=== PATIENT | female | born 1965 ===

== ENCOUNTER 2017-08-10 10:19 | Inpatient (IN) | payer MEDICAID, OTHER ==
[2017-08-10 10:19] VITALS: BMI 41.3
--- NOTE | 2017-08-10 10:37 | C.PDOC ---
History Of Present Illness 52 year old female with no significant PMHx presents to the ED with complaints of headache beginning last night. Patient reports scattered bruising, petechaie , and hematuria this morning. Patient took Aspirin for pain, with no relief. Patient denies known trauma, fever, chills, nausea, vomiting, photophobia, dysuria, or other complaints at this time. Time Seen by Provider: 08/10/17 10:29 Chief Complaint (Nursing): Headache History Per: Patient History/Exam Limitations: no limitations Onset/Duration Of Symptoms: Hrs Current Symptoms Are (Timing): Still Present Preceeding Symptoms: None Associated Symptoms: denies: Photophobia, Blurred Vision, Nausea, Vomiting, Extremity Weakness Recent travel outside of the [place]: No Additional History Per: Family Past Medical History Reviewed: Historical Data, Nursing Documentation, Vital Signs Vital Signs: Last Vital Signs Temp 98.0 F 08/11/17 15:00 Pulse 86 08/11/17 16:43 Resp 20 08/11/17 15:00 BP 117/72 08/11/17 15:00 Pulse Ox 96 08/11/17 15:00 - Medical History PMH: HTN Family History: States: Unknown Family Hx - Social History Hx Alcohol Use: No Hx Substance Use: No - Immunization History Hx Tetanus Toxoid Vaccination: No Hx Influenza Vaccination: No Hx Pneumococcal Vaccination: No Review Of Systems Constitutional: Negative for: Fever, Chills Cardiovascular: Negative for: Chest Pain, Palpitations Respiratory: Negative for: Cough, Shortness of Breath Gastrointestinal: Negative for: Nausea, Vomiting, Abdominal Pain Genitourinary: Positive for: Hematuria. Negative for: Dysuria Skin: Positive for: Bruising, Other (petechaie ) Neurological: Positive for: Headache. Negative for: Weakness, Numbness, Dizziness Physical Exam - Physical Exam Appears: Non-toxic, No Acute Distress Skin: Warm, Dry, Ecchymosis (bilateral lower and upper extremities), Other ( petechiae to upper right lower extremity ) Head: Atraumatic, Normacephalic, No Tenderness Eye(s): bilateral: Normal Inspection, PERRL, EOMI Oral Mucosa: Moist Neck: Supple Chest: Symmetrical, No Deformity Cardiovascular: Rhythm Regular, No Murmur Respiratory: No Rales, No Rhonchi, No Wheezing, Other (clear to auscultation bilaterally ) Gastrointestinal/Abdominal: Soft, No Tenderness, No Distention, No Guarding, No Rebound Extremity: Normal ROM, No Tenderness, Capillary Refill (<2 seconds ), No Swelling Neurological/Psych: Oriented x3, Normal Speech, Normal Cognition, Normal Cranial Nerves, No Cerebellar Signs, Normal Motor, Normal Sensation Gait: Steady ED Course And Treatment - Laboratory Results Result Diagrams: 08/11/17 05:54 08/11/17 05:54 O2 Sat by Pulse Oximetry: 98 (RA) Pulse Ox Interpretation: Normal - CT Scan/US Head CT W/O contrast Other Rad Studies (CT/US): Read By Radiologist, Radiology Report Reviewed CT/US Interpretation: FINDINGS: HEMORRHAGE: No intracranial hemorrhage. BRAIN : No mass effect or edema. No atrophy or chronic microvascular ischemic changes. VENTRICLES: Unremarkable. No hydrocephalus. CALVARIUM: Unremarkable. PARANASAL SINUSES: Unremarkable as visualized. No significant inflammatory changes. MASTOID AIR CELLS: Unremarkable as visualized. No inflammatory changes. OTHER FINDINGS: None. IMPRESSION: Normal CT of the Head. No intracranial mass, hemorrhage or evidence of acute infarct. Abdomen Pelvis CT Other Rad Studies (CT/US): Read By Radiologist, Radiology Report Reviewed CT/US Interpretation: FINDINGS: LOWER THORAX: Calcified granuloma lingular segment left upper lobe with adjacent linear pleural-based scar. No infiltrate / effusion. LIVER: Mild hepatomegaly. The liver measures 21 cm craniocaudal. No mass. Smooth contour. No intrahepatic biliary dilatation. GALLBLADDER AND BILE DUCTS: Cholelithiasis. No mural thickening. Incidental tubular structure in the jose m hepatis with peripheral calcification, possibly calcified choledocholithiasis. This is immediately adjacent to the common bile duct/ common hepatic duct. This is not a concern for neoplasm. PANCREAS: Unremarkable. No gross lesion or ductal dilatation. SPLEEN: Unremarkable. ADRENALS: Unremarkable. No mass. KIDNEYS AND URETERS: Unremarkable. No hydronephrosis. No solid mass. VASCULATURE: Unremarkable. No aortic aneurysm. BOWEL: Unremarkable. No obstruction. No gross mural thickening. APPENDIX: Unremarkable. Normal appendix. PERITONEUM: Unremarkable. No free fluid. No free air. LYMPH NODES: Unremarkable. No enlarged lymph nodes. BLADDER: Unremarkable. REPRODUCTIVE: Normal uterus. BONES: No acute fracture. OTHER FINDINGS: None. IMPRESSION: No evidence of urinary calculus or urinary tract obstruction. Cholelithiasis. Incidental peripherally calcified tubular structure in the jose m hepatis, possibly calcified choledochal cyst. No additional abnormality. Progress Note: Head CT w/o contrast, Abdomen Pelvis CT, blood work, and labs were ordered. Patient was given Tylenol. Medical Decision Making Medical Decision Making: supsect new onset thrombocytopenia, itp, ttp hus - r/o intracranil bleed. Spoke to Dr. Boswell, Hem-Onc professional advisor, and recommends STAT 250 mg of Solu-medrol IV and 40 mg Q12. discussed with dr gasca accepts for admission. peripheral smear rquests sent to lab Disposition - Disposition Disposition: HOSPITALIZED Disposition Time: 11:00 Condition: FAIR - Clinical Impression Clinical Impression: Thrombocytopenia, Hematuria, Headache - Scribe Statement The provider has reviewed the documentation as recorded by the Scribe Lin Conte All medical record entries made by the Scribe were at my direction and personally dictated by me. I have reviewed the chart and agree that the record accurately reflects my personal performance of the history, physical exam, medical decision making, and the department course for this patient. I have also personally directed, reviewed, and agree with the discharge instructions and disposition. Decision To Admit - Pt Status Changed To: Hospital Disposition Of: Inpatient - Admit Certification Admit to Inpatient:: After my assessment, the patient will require hospitalization for at least two midnights. This is because of the severity of symptoms shown, intensity of services needed, and/or the medical risk in this patient being treated as an outpatient. - InPatient: Physician Admission Certification: I certify that this patient requires 2 or more midnights of care for the following reason:: needs plts - . Bed Request Type: Telemetry Admitting Physician: Zarina Gasca Patient Diagnosis: Thrombocytopenia, Hematuria, Headache
[2017-08-10 10:58] LABS: BASO # 0.1 K/uL (0.0-0.2); EOS # 0.1 K/uL (0.0-0.7); EOS % 1.3 % (0.0-4.0); HEMOGLOBIN 14.2 g/dL (11.0-16.0); LYMPH # 1.2 K/uL (1.0-4.3); LYMPH % 17.6 % (20.0-40.0); MEAN CELL VOLUME 92.1 fL (81.0-99.0); MEAN CORPUSCULAR HGB CONC 33.6 g/dL (33.0-37.0); MEAN PLATELET VOLUME 9.8 fL (7.2-11.7); MONO # 0.4 K/uL (0.0-0.8); MONO % 6.4 % (0.0-10.0); NEUT # 5.2 K/uL (1.8-7.0); NEUT % 73.7 % (50.0-75.0); RBC 4.59 Mil/uL (3.80-5.20); RED CELL DISTRIBUTION WIDTH 13.2 % (11.5-14.5); WHITE BLOOD COUNT 7.1 K/uL (4.8-10.8)
[2017-08-10 11:02] LABS: HCG,QUALITATIVE URINE NEGATIVE (NEGATIVE)
[2017-08-10 11:06] LABS: INR 0.9; PLATELET COUNT 11 K/uL (130-400); PROTHROMBIN TIME 10.6 SECONDS (9.7-12.2)
[2017-08-10 11:13] LABS: URINE BACTERIA RARE (<OCC); URINE BILIRUBIN NEGATIVE (NEGATIVE); URINE BLOOD 3+ (NEGATIVE); URINE CLARITY Clear (Clear); URINE COLOR Red (YELLOW); URINE GLUCOSE (UA) NORMAL (Normal); URINE LEUKOCYTE ESTERASE NEG Leu/uL (Negative); URINE NITRATE NEGATIVE (NEGATIVE); URINE PROTEIN 2+ mg/dL (NEGATIVE); URINE UROBILINOGEN NORMAL mg/dL (0.2-1.0)
[2017-08-10 11:15] LABS: ALB/GLOB RATIO 1.1 (1.0-2.1); ALT/SGPT 112 U/L (9-52); AST/SGOT 37 U/L (14-36); BLOOD UREA NITROGEN 13 mg/dL (7-17); CALCIUM 8.8 mg/dl (8.6-10.4); GFR AFRICAN-AMERICAN > 60; GFR NON-AFRICAN AMERICAN > 60
[2017-08-10] MEDS ORDERED: MethylPREDNISolone 40 mg Vial IVP STA (11:31)
--- NOTE | 2017-08-10 11:59 | CT ---
PROCEDURE: CT HEAD WITHOUT CONTRAST. HISTORY: khan COMPARISON: None available. TECHNIQUE: Axial computed tomography images were obtained through the head/brain without intravenous contrast. Radiation dose: Total exam DLP = 859.13 mGy-cm. This CT exam was performed using one or more of the following dose reduction techniques: Automated exposure control, adjustment of the mA and/or kV according to patient size, and/or use of iterative reconstruction technique. FINDINGS: HEMORRHAGE: No intracranial hemorrhage. BRAIN: No mass effect or edema. No atrophy or chronic microvascular ischemic changes. VENTRICLES: Unremarkable. No hydrocephalus. CALVARIUM: Unremarkable. PARANASAL SINUSES: Unremarkable as visualized. No significant inflammatory changes. MASTOID AIR CELLS: Unremarkable as visualized. No inflammatory changes. OTHER FINDINGS: None. IMPRESSION: Normal CT of the Head. No intracranial mass, hemorrhage or evidence of acute infarct.
--- NOTE | 2017-08-10 12:16 | CT ---
PROCEDURE: CT Abdomen and Pelvis without intravenous contrast HISTORY: hematuria COMPARISON: None. TECHNIQUE: Without contrast.. Contrast Dose: 0 Radiation dose: Total exam DLP = 1086.66 mGy-cm. This CT exam was performed using one or more of the following dose reduction techniques: Automated exposure control, adjustment of the mA and/or kV according to patient size, and/or use of iterative reconstruction technique. FINDINGS: LOWER THORAX: Calcified granuloma lingular segment left upper lobe with adjacent linear pleural-based scar. No infiltrate/ effusion. LIVER: Mild hepatomegaly. The liver measures 21 cm craniocaudal. No mass. Smooth contour. No intrahepatic biliary dilatation. GALLBLADDER AND BILE DUCTS: Cholelithiasis. No mural thickening. Incidental tubular structure in the jose m hepatis with peripheral calcification, possibly calcified choledocholithiasis. This is immediately adjacent to the common bile duct/common hepatic duct. This is not a concern for neoplasm. PANCREAS: Unremarkable. No gross lesion or ductal dilatation. SPLEEN: Unremarkable. ADRENALS: Unremarkable. No mass. KIDNEYS AND URETERS: Unremarkable. No hydronephrosis. No solid mass. VASCULATURE: Unremarkable. No aortic aneurysm. BOWEL: Unremarkable. No obstruction. No gross mural thickening. APPENDIX: Unremarkable. Normal appendix. PERITONEUM: Unremarkable. No free fluid. No free air. LYMPH NODES: Unremarkable. No enlarged lymph nodes. BLADDER: Unremarkable. REPRODUCTIVE: Normal uterus. BONES: No acute fracture. OTHER FINDINGS: None. IMPRESSION: No evidence of urinary calculus or urinary tract obstruction. Cholelithiasis. Incidental peripherally calcified tubular structure in the jose m hepatis, possibly calcified choledochal cyst. No additional abnormality.
[2017-08-10 12:48] LABS: EOSINOPHIL 2 % (0-4); LYMPHOCYTE 21 % (20-40); MONOCYTE 5 % (0-10); NEUTROPHIL 72 % (50-75); TOTAL CELLS COUNTED 100
[2017-08-10 12:49] LABS: PLATELET ESTIMATE MARKEDLY DECREASED (NORMAL)
--- NOTE | 2017-08-10 15:28 | CP.PCM.HP ---
<Zarina Gasca V - Last Filed: 08/10/17 21:30> Meds Allergies/Adverse Reactions: Allergies Allergy/AdvReac Type Severity Reaction Status Date / Time No Known Allergies Allergy Verified 08/10/17 10:27 Results - Vital Signs Recent Vital Signs: Last Vital Signs Temp 98.8 F 08/10/17 16:48 Pulse 84 08/10/17 16:48 Resp 18 08/10/17 16:48 BP 124/79 08/10/17 16:48 Pulse Ox 97 08/10/17 16:48 - Labs Result Diagrams: 08/10/17 10:50 08/10/17 10:50 Labs: Laboratory Results - last 24 hr 08/10/17 08/10/17 08/10/17 10:50 10:50 10:50 WBC 7.1 RBC 4.59 Hgb 14.2 Hct 42.2 MCV 92.1 MCH 31.0 MCHC 33.6 RDW 13.2 Plt Count 11 L* D MPV 9.8 Neut % (Auto) 73.7 Lymph % (Auto) 17.6 L [place] % (Auto) 6.4 Eos % (Auto) 1.3 Baso % (Auto) 1.0 Neut # 5.2 Lymph # 1.2 [place] # 0.4 Eos # 0.1 Baso # 0.1 Neutrophils % (Manual) 72 Lymphocytes % (Manual) 21 Monocytes % (Manual) 5 Eosinophils % (Manual) 2 Differential Comment Platelet Estimate Markedly decreased L RBC Morphology Normal PT 10.6 INR 0.9 APTT 27 Sodium Potassium Chloride Carbon Dioxide Anion Gap BUN Creatinine Est GFR ( Amer) Est GFR (Non-Af Amer) Random Glucose Calcium Total Bilirubin AST ALT Alkaline Phosphatase Lactate Dehydrogenase Total Protein Albumin Globulin Albumin/Globulin Ratio Urine Color Red Urine Clarity Clear Urine pH 6.0 Ur Specific Gregory 1.003 Urine Protein 2+ H Urine Glucose (UA) Normal Urine Ketones Negative Urine Blood 3+ H Urine Nitrate Negative Urine Bilirubin Negative Urine Urobilinogen Normal Ur Leukocyte Esterase Neg Urine WBC (Auto) 2 Urine RBC (Auto) 228 H Urine Bacteria Rare Urine HCG, Qual Negative Urine Opiates Screen Urine Methadone Screen Ur Barbiturates Screen Ur Phencyclidine Scrn Ur Amphetamines Screen U Benzodiazepines Scrn U Oth Cocaine Metabols U Cannabinoids Screen Alcohol, Quantitative Blood Type Antibody Screen 08/10/17 08/10/1718 10:50 10:59 14:41 WBC RBC Hgb Hct MCV MCH MCHC RDW Plt Count MPV Neut % (Auto) Lymph % (Auto) [place] % (Auto) Eos % (Auto) Baso % (Auto) Neut # Lymph # [place] # Eos # Baso # Neutrophils % (Manual) Lymphocytes % (Manual) Monocytes % (Manual) Eosinophils % (Manual) Differential Comment Platelet Estimate RBC Morphology PT INR APTT Sodium 136 Potassium 4.4 Chloride 102 Carbon Dioxide 26 Anion Gap 13 BUN 13 Creatinine 0.7 Est GFR ( Amer) > 60 Est GFR (Non-Af Amer) > 60 Random Glucose 117 H Calcium 8.8 Total Bilirubin 0.7 AST 37 H D ALT 112 H D Alkaline Phosphatase 123 Lactate Dehydrogenase 455 Total Protein 7.5 Albumin 4.0 Globulin 3.6 Albumin/Globulin Ratio 1.1 Urine Color Urine Clarity Urine pH Ur Specific Gregory Urine Protein Urine Glucose (UA) Urine Ketones Urine Blood Urine Nitrate Urine Bilirubin Urine Urobilinogen Ur Leukocyte Esterase Urine WBC (Auto) Urine RBC (Auto) Urine Bacteria Urine HCG, Qual Urine Opiates Screen Urine Methadone Screen Ur Barbiturates Screen Ur Phencyclidine Scrn Ur Amphetamines Screen U Benzodiazepines Scrn U Oth Cocaine Metabols U Cannabinoids Screen Alcohol, Quantitative < 10 Blood Type B POSITIVE Antibody Screen Negative 08/10/17 15:35 WBC RBC Hgb Hct MCV MCH MCHC RDW Plt Count MPV Neut % (Auto) Lymph % (Auto) [place] % (Auto) Eos % (Auto) Baso % (Auto) Neut # Lymph # [place] # Eos # Baso # Neutrophils % (Manual) Lymphocytes % (Manual) Monocytes % (Manual) Eosinophils % (Manual) Differential Comment Platelet Estimate RBC Morphology PT INR APTT Sodium Potassium Chloride Carbon Dioxide Anion Gap BUN Creatinine Est GFR ( Amer) Est GFR (Non-Af Amer) Random Glucose Calcium Total Bilirubin AST ALT Alkaline Phosphatase Lactate Dehydrogenase Total Protein Albumin Globulin Albumin/Globulin Ratio Urine Color Urine Clarity Urine pH Ur Specific Gregory Urine Protein Urine Glucose (UA) Urine Ketones Urine Blood Urine Nitrate Urine Bilirubin Urine Urobilinogen Ur Leukocyte Esterase Urine WBC (Auto) Urine RBC (Auto) Urine Bacteria Urine HCG, Qual Urine Opiates Screen Positive H Urine Methadone Screen Negative Ur Barbiturates Screen Negative Ur Phencyclidine Scrn Negative Ur Amphetamines Screen Negative U Benzodiazepines Scrn Negative U Oth Cocaine Metabols Negative U Cannabinoids Screen Negative Alcohol, Quantitative Blood Type Antibody Screen Assessment & Plan (1) Severe thrombocytopenia Status: Acute (2) Prophylactic measure Status: Acute Attending/Attestation - Attestation I have personally seen and examined this patient.: Yes I have fully participated in the care of the patient.: Yes I have reviewed all pertinent clinical information: Yes Notes (Text): Patient seen, examined and case discussed with day-time resident. Patient comes in to the hospital following acute bruising over her bilateral bruising over night, as well as mucosal bleeding and associated headaches, which are occipital. Patient reports she takes Aspirin and sometimes NSAID but does not go away. Patient reports she was recently in [facility] and left on 01 of August. Day prior, she had abdominal pain and associated non-bloody diarrhea which resolved following eating grilled/broiled chicken. While in [facility], she stay for two months. Patient reports she has seen delayed in recover which she cuts her finger for at least two months. Patient denies vision changes, denies hearing changes, denies chest pain, denies shortness of breathe, denies myalgia, denies abdominal pain, denies constipation, denies nausea, denies dysuria, denies hematuria. +ecchymoes. Patient has not had bleeding problems prior to these two months. She has had a in the past and no bleeding complications. Patient had a recent procedure completed in [facility] for skin rash but doesn't know medication. I advised them to bring in the paperwork so we can see if there is any medication side effect. Discussed case with heme-oncology, does not believe this is TTP. There is no schistocytes, no hemolysis, and hemoglobin stable. Recommends for Solumedrol 250mg IV X1 and Solumedrol 40mg IV Q12H. Patient is going to have platepheresis has not received yet as she has been transferred to the floor. HIV and hepatitis panel were ordered. CT head was competed by ED. Assessment/Plan 1) Severe thrombocytopenia * Monitor on telemetry * Heme-onc (Dr. Afshin Boswell) on consult-->help appreciated * Discussed with ED to send a peripheral smear. I spoke with lab and confirmed there are no schistocytes. * Given Solumedrol 250mg IV X1 * Recommended Solumedrol 40mg IV Q12 * Ordered plateletpheresis * HIV 1 and 2 pending * Hepatitis panel pending * Abdominal US pending * Blood cultures ordered * Urine culture ordered * UDS is negative (received Morphine in the ED' * [id number] ACT w reflex ordered---Low suspicion for TTP * do not give NSAIDS nor aspirin * CT head (08/10/17): normal CT head, no intracranial mass, hemorrhage, or evidence of acute infarct. * CT Abdomen/Pelvis (08/10/17): no evidence of urinary calculus or urinary tract obstruction. cholelithiasis, incidental peripherally calcifed tubular structure in the jose m hepatis, possible calcifed choledochal cyst. No additional abnormality. * Medicine team * Follow-up paperwork from [facility]-->patient received some type of injection for cellulitis but cannot remember name to see if it has thrombocytopenia 2) Headache * CT head (08/10/17): normal CT head, no intracranial mass, hemorrhage, or evidence of acute infarct. 3) Prophylactic care * Contraindication chemical anticoagulation secondary to thrombocytopenia * Protonix 40mg IV q daily <Christopher Cerda - Last Filed: 08/10/17 23:40> History of Present Illness - History of Present Illness History of Present Illness: PGY2 Resident - Medicine H&P CC: headache since last night; scattered bruising, petechia, and hematuria since this morning. HPI: This 52 year old female with no significant PMHx presents to the ED c/o headache since last night and scattered bruising, petechia, and hematuria since this morning. She took ASA last night with no relief of her headache, located in the occipital region. She also takes OTC Glucosamine Chondr. daily and Motrin PRN for "join aches." This is her first overt episode of petechia and bruising, however she admits that over the last 2 months, it has taken her longer to stop bleeding from minor cuts. She was recently in [facility] and experienced 2d of vomiting and diarrhea between 07/30 and 07/31/17. She feels this is from ingesting a dish or rice, beans, and chicken (reports water is filtered where they stay). She saw a doctor who injected her with unknown medication, and she felt well the next day, catching a return flight on 1/12/ 18. Her son will bring in the medical records for review. She currently denies any fevers, chills, trauma, n/v, photophobia, dysuria, or any additional acute complaints. PMHx: none PSHx: c section 1997 Meds: Glucosamine Chondr 500 Complex 1 Capsule Orally bid Allergies: NKDA FamHx: father: from [place]; mom: heart disease; grandfather (maternal): pancreatic cancer SocHx: 1-2 beers per month PMD: Dr. Amaro Review of Systems: -Gen: +headache (occipital); denies fever, chills, lethargy, weakness. -HEENT: denies dizziness, change in vision, change in hearing, sore throat, dysphagia, nasal congestion, mucous. -Cardio: denies chest pain, palpitations, lower extremity edema, orthopnea. -Resp: denies cough, dyspnea, hemoptysis, wheezing, pain on inspiration. -GI: denies abdominal pain, nausea/vomiting, diarrhea/constipation, hematochezia , hematemesis. -: +hematuria; denies dysuria, urinary freq, incontinence, change in urinary stream. -MSK: denies back pain, muscle weakness, radiating pain. -Skin: +scattered bruising, petechia; denies itching, rash. -Neuro: denies confusion, numbness, tingling, focal weakness, radicular pain, syncope. -Psych: denies anxiety, depression, H/I, S/I, hallucinations. Present on Admission - Present on Admission Any Indicators Present on Admission: No Past Patient History - Past Social History Smoking Status: Never Smoked - CARDIAC Hx Hypertension: Yes - PSYCHIATRIC Hx Substance Use: No - SURGICAL HISTORY Hx Section: Yes - ANESTHESIA Hx Anesthesia: Yes Hx Anesthesia Reactions: No Physical Exam - Constitutional Appears: Non-toxic, No Acute Distress - Head Exam Head Exam: ATRAUMATIC, NORMAL INSPECTION - Eye Exam Eye Exam: EOMI, Normal appearance, PERRL Pupil Exam: NORMAL ACCOMODATION - ENT Exam ENT Exam: Mucous Membranes Moist. absent: Normal Oropharynx Additional comments: scattered hematomas (approx 5) averaging 5-10mm in diameter throughout oropharynx and inner lips. - Neck Exam Neck exam: Positive for: Full Rom. Negative for: Lymphadenopathy - Respiratory Exam Respiratory Exam: Clear to Auscultation Bilateral, NORMAL BREATHING PATTERN. absent: Rhonchi, Wheezes - Cardiovascular Exam Cardiovascular Exam: REGULAR RHYTHM, +S1, +S2 - GI/Abdominal Exam GI & Abdominal Exam: Normal Bowel Sounds, Soft. absent: Organomegaly, Tenderness - Extremities Exam Extremities exam: Positive for: normal inspection. Negative for: pedal edema, tenderness - Back Exam Back exam: NORMAL INSPECTION. absent: CVA tenderness (L), CVA tenderness (R) - Neurological Exam Neurological exam: Alert, CN II-XII Intact, Oriented x3 - Psychiatric Exam Psychiatric exam: Normal Affect, Normal Mood - Skin Skin Exam: Dry, Intact, Petechiae (scattered petachiae of upper and lower extremities; larger areas of bruising up to 2cm in diameter on b/l thighs / shins), Warm Results - Vital Signs Recent Vital Signs: Last Vital Signs Temp 98.8 F 08/10/17 10:20 Pulse 72 08/10/17 11:51 Resp 16 08/10/17 11:51 BP 112/63 08/10/17 11:51 Pulse Ox 98 08/10/17 13:57 - Labs Result Diagrams: 08/10/17 10:50 08/10/17 10:50 Labs: Laboratory Results - last 24 hr 08/10/17 08/10/17 08/10/17 10:50 10:50 10:50 WBC 7.1 RBC 4.59 Hgb 14.2 Hct 42.2 MCV 92.1 MCH 31.0 MCHC 33.6 RDW 13.2 Plt Count 11 L* D MPV 9.8 Neut % (Auto) 73.7 Lymph % (Auto) 17.6 L [place] % (Auto) 6.4 Eos % (Auto) 1.3 Baso % (Auto) 1.0 Neut # 5.2 Lymph # 1.2 [place] # 0.4 Eos # 0.1 Baso # 0.1 Neutrophils % (Manual) 72 Lymphocytes % (Manual) 21 Monocytes % (Manual) 5 Eosinophils % (Manual) 2 Differential Comment Platelet Estimate Markedly decreased L RBC Morphology Normal PT 10.6 INR 0.9 APTT 27 Sodium Potassium Chloride Carbon Dioxide Anion Gap BUN Creatinine Est GFR ( Amer) Est GFR (Non-Af Amer) Random Glucose Calcium Total Bilirubin AST ALT Alkaline Phosphatase Lactate Dehydrogenase Total Protein Albumin Globulin Albumin/Globulin Ratio Urine Color Red Urine Clarity Clear Urine pH 6.0 Ur Specific [place] 1.003 Urine Protein 2+ H Urine Glucose (UA) Normal Urine Ketones Negative Urine Blood 3+ H Urine Nitrate Negative Urine Bilirubin Negative Urine Urobilinogen Normal Ur Leukocyte Esterase Neg Urine WBC (Auto) 2 Urine RBC (Auto) 228 H Urine Bacteria Rare Urine HCG, Qual Negative Alcohol, Quantitative Blood Type Antibody Screen 08/10/17 08/10/17 08/10/17 10:50 10:59 14:41 WBC RBC Hgb Hct MCV MCH MCHC RDW Plt Count MPV Neut % (Auto) Lymph % (Auto) [place] % (Auto) Eos % (Auto) Baso % (Auto) Neut # Lymph # [place] # Eos # Baso # Neutrophils % (Manual) Lymphocytes % (Manual) Monocytes % (Manual) Eosinophils % (Manual) Differential Comment Platelet Estimate RBC Morphology PT INR APTT Sodium 136 Potassium 4.4 Chloride 102 Carbon Dioxide 26 Anion Gap 13 BUN 13 Creatinine 0.7 Est GFR ( Amer) > 60 Est GFR (Non-Af Amer) > 60 Random Glucose 117 H Calcium 8.8 Total Bilirubin 0.7 AST 37 H D ALT 112 H D Alkaline Phosphatase 123 Lactate Dehydrogenase 455 Total Protein 7.5 Albumin 4.0 Globulin 3.6 Albumin/Globulin Ratio 1.1 Urine Color Urine Clarity Urine pH Ur Specific Gregory Urine Protein Urine Glucose (UA) Urine Ketones Urine Blood Urine Nitrate Urine Bilirubin Urine Urobilinogen Ur Leukocyte Esterase Urine WBC (Auto) Urine RBC (Auto) Urine Bacteria Urine HCG, Qual Alcohol, Quantitative < 10 Blood Type B POSITIVE Antibody Screen Negative Assessment & Plan - Assessment and Plan (Free Text) Assessment: Severe thrombocytopenia -CT head: negative, see full report. -CT Abdomen/Pelvis: cholelithiasis, incidental peripherally calcifed tubular structure in the jose m hepatis, possible calcifed choledochal cyst. no evidence of urinary calculus or urinary tract obstruction. see full report. -Heme-onc, Dr. Afshin Boswell, f/u recs -ED course: morphin 2mg IVP, Solumedrol 250mg IVP, Tylenol 925 PO once, Plateletpheresis - Solumedrol 40mg IV Q12 -f/u peripheral smear, HIV1/2, Hep panel, BC, UC, [id number] -f/u medial paperwork (son will bring in, from doctor in [place]- gave her an injection) f/u abd US Hematuria -likely 2/2 severe thrombocytopenia -f/u abdominal ultrasound -UA 2+ protein; 3+ blood f/u UC f/u abd US Headache -CT head: negative, see full report. Prophylaxis Chemical anticoagulation C/I 2/2 thrombocytopenia SCDs C/I 2/2 thrombocytopenia Protonix 40mg IV q daily Case discussed with Dr. Elo Cerda, PGY2 - Date & Time Date: 08/10/17 Time: 15:28
[2017-08-10 16:31] LABS: BARBITURATES, UR NEGATIVE (NEGATIVE); BENZODIAZEPINES, UR NEGATIVE (NEGATIVE); PHENCYCLIDINE, UR NEGATIVE (NEGATIVE)
[2017-08-10 16:33] LABS: OPIATES, UR POSITIVE (NEGATIVE)
--- NOTE | 2017-08-10 17:46 | CP.PCM.CON ---
History of Present Illness - History of Present Illness History of Present Illness: 52 year old female with no past medical history presenting for headache and found to be thrombocytopenic. The patient recently came from [facility] and was given an unknown injection. Since returning, she has been experiencing increasing headache for which she has been taking NSAIDs. She does admit to increased bruising over her extermities. In the ER she was found to have a platelet count of 11,000. She denies taking medication and does not drink alcohol. Past medical history: None Past surgical history: None Family history: Denies hematologic and oncologic problems Social history: Denies tobacco, alcohol, and illicit drug use. Allergies: NKA Review of systems: All remaining review of systems including HEENT, cardiovascular, respiratory, gastrointestinal, genitourinary, musculoskeletal, dermatologic, and psychiatric are negative unless mentioned in the HPI. Past Patient History - Past Social History Smoking Status: Never Smoked - CARDIAC Hx Hypertension: Yes - PSYCHIATRIC Hx Substance Use: No - SURGICAL HISTORY Hx Section: Yes - ANESTHESIA Hx Anesthesia: Yes Hx Anesthesia Reactions: No Meds Allergies/Adverse Reactions: Allergies Allergy/AdvReac Type Severity Reaction Status Date / Time No Known Allergies Allergy Verified 08/10/17 10:27 Physical Exam - Head Exam Head Exam: ATRAUMATIC - Eye Exam Eye Exam: Normal appearance - ENT Exam ENT Exam: Mucous Membranes Dry - Respiratory Exam Respiratory Exam: NORMAL BREATHING PATTERN - Cardiovascular Exam Cardiovascular Exam: +S1, +S2 - GI/Abdominal Exam GI & Abdominal Exam: Normal Bowel Sounds - Extremities Exam Extremities exam: Positive for: normal inspection - Neurological Exam Neurological exam: Oriented x3 - Psychiatric Exam Psychiatric exam: Normal Affect, Normal Mood - Skin Skin Exam: Warm Results - Vital Signs Recent Vital Signs: Last Vital Signs Temp 98.8 F 08/10/17 16:48 Pulse 84 08/10/17 16:48 Resp 18 08/10/17 16:48 BP 124/79 08/10/17 16:48 Pulse Ox 97 08/10/17 16:48 - Labs Result Diagrams: 08/11/17 22:57 08/11/17 05:54 Labs: Laboratory Results - last 24 hr 08/10/17 08/10/17 08/10/17 10:50 10:50 10:50 WBC 7.1 RBC 4.59 Hgb 14.2 Hct 42.2 MCV 92.1 MCH 31.0 MCHC 33.6 RDW 13.2 Plt Count 11 L* D MPV 9.8 Neut % (Auto) 73.7 Lymph % (Auto) 17.6 L [place] % (Auto) 6.4 Eos % (Auto) 1.3 Baso % (Auto) 1.0 Neut # 5.2 Lymph # 1.2 [place] # 0.4 Eos # 0.1 Baso # 0.1 Neutrophils % (Manual) 72 Lymphocytes % (Manual) 21 Monocytes % (Manual) 5 Eosinophils % (Manual) 2 Differential Comment Platelet Estimate Markedly decreased L RBC Morphology Normal PT 10.6 INR 0.9 APTT 27 Sodium Potassium Chloride Carbon Dioxide Anion Gap BUN Creatinine Est GFR ( Amer) Est GFR (Non-Af Amer) Random Glucose Calcium Total Bilirubin AST ALT Alkaline Phosphatase Lactate Dehydrogenase Total Protein Albumin Globulin Albumin/Globulin Ratio Urine Color Red Urine Clarity Clear Urine pH 6.0 Ur Specific [place] 1.003 Urine Protein 2+ H Urine Glucose (UA) Normal Urine Ketones Negative Urine Blood 3+ H Urine Nitrate Negative Urine Bilirubin Negative Urine Urobilinogen Normal Ur Leukocyte Esterase Neg Urine WBC (Auto) 2 Urine RBC (Auto) 228 H Urine Bacteria Rare Urine HCG, Qual Negative Urine Opiates Screen Urine Methadone Screen Ur Barbiturates Screen Ur Phencyclidine Scrn Ur Amphetamines Screen U Benzodiazepines Scrn U Oth Cocaine Metabols U Cannabinoids Screen Alcohol, Quantitative Blood Type Antibody Screen 08/10/17 08/10/17 08/10/17 10:50 10:59 14:41 WBC RBC Hgb Hct MCV MCH MCHC RDW Plt Count MPV Neut % (Auto) Lymph % (Auto) [place] % (Auto) Eos % (Auto) Baso % (Auto) Neut # Lymph # [place] # Eos # Baso # Neutrophils % (Manual) Lymphocytes % (Manual) Monocytes % (Manual) Eosinophils % (Manual) Differential Comment Platelet Estimate RBC Morphology PT INR APTT Sodium 136 Potassium 4.4 Chloride 102 Carbon Dioxide 26 Anion Gap 13 BUN 13 Creatinine 0.7 Est GFR ( Amer) > 60 Est GFR (Non-Af Amer) > 60 Random Glucose 117 H Calcium 8.8 Total Bilirubin 0.7 AST 37 H D ALT 112 H D Alkaline Phosphatase 123 Lactate Dehydrogenase 455 Total Protein 7.5 Albumin 4.0 Globulin 3.6 Albumin/Globulin Ratio 1.1 Urine Color Urine Clarity Urine pH Ur Specific [place] Urine Protein Urine Glucose (UA) Urine Ketones Urine Blood Urine Nitrate Urine Bilirubin Urine Urobilinogen Ur Leukocyte Esterase Urine WBC (Auto) Urine RBC (Auto) Urine Bacteria Urine HCG, Qual Urine Opiates Screen Urine Methadone Screen Ur Barbiturates Screen Ur Phencyclidine Scrn Ur Amphetamines Screen U Benzodiazepines Scrn U Oth Cocaine Metabols U Cannabinoids Screen Alcohol, Quantitative < 10 Blood Type B POSITIVE Antibody Screen Negative 08/10/17 15:35 WBC RBC Hgb Hct MCV MCH MCHC RDW Plt Count MPV Neut % (Auto) Lymph % (Auto) [place] % (Auto) Eos % (Auto) Baso % (Auto) Neut # Lymph # [place] # Eos # Baso # Neutrophils % (Manual) Lymphocytes % (Manual) Monocytes % (Manual) Eosinophils % (Manual) Differential Comment Platelet Estimate RBC Morphology PT INR APTT Sodium Potassium Chloride Carbon Dioxide Anion Gap BUN Creatinine Est GFR ( Amer) Est GFR (Non-Af Amer) Random Glucose Calcium Total Bilirubin AST ALT Alkaline Phosphatase Lactate Dehydrogenase Total Protein Albumin Globulin Albumin/Globulin Ratio Urine Color Urine Clarity Urine pH Ur Specific [place] Urine Protein Urine Glucose (UA) Urine Ketones Urine Blood Urine Nitrate Urine Bilirubin Urine Urobilinogen Ur Leukocyte Esterase Urine WBC (Auto) Urine RBC (Auto) Urine Bacteria Urine HCG, Qual Urine Opiates Screen Positive H Urine Methadone Screen Negative Ur Barbiturates Screen Negative Ur Phencyclidine Scrn Negative Ur Amphetamines Screen Negative U Benzodiazepines Scrn Negative U Oth Cocaine Metabols Negative U Cannabinoids Screen Negative Alcohol, Quantitative Blood Type Antibody Screen Assessment & Plan (1) Thrombocytopenia Assessment and Plan: 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 Status: Acute
[2017-08-10] MEDS: MethylPREDNISolone 40 mg Vial IVP SCH (19:00)
[2017-08-11 06:00] LABS: BASO % 0.1 % (0.0-2.0); HEMOGLOBIN 12.8 g/dL (11.0-16.0); LYMPH # 0.8 K/uL (1.0-4.3); LYMPH % 9.8 % (20.0-40.0); MEAN CELL VOLUME 91.7 fL (81.0-99.0); MEAN CORPUSCULAR HEMOGLOBIN 30.9 pg (27.0-31.0); MEAN CORPUSCULAR HGB CONC 33.7 g/dL (33.0-37.0); MEAN PLATELET VOLUME 8.6 fL (7.2-11.7); MONO # 0.2 K/uL (0.0-0.8); MONO % 2.3 % (0.0-10.0); NEUT # 7.5 K/uL (1.8-7.0); NEUT % 87.8 % (50.0-75.0); RBC 4.15 Mil/uL (3.80-5.20); RED CELL DISTRIBUTION WIDTH 12.8 % (11.5-14.5); WHITE BLOOD COUNT 8.5 K/uL (4.8-10.8)
[2017-08-11 06:07] LABS: PROTHROMBIN TIME 10.9 SECONDS (9.7-12.2)
[2017-08-11] MEDS: MethylPREDNISolone 40 mg Vial IVP SCH ×2 (06:07→17:48)
[2017-08-11 06:16] LABS: PLATELET COUNT 3 K/uL (130-400)
[2017-08-11 06:31] LABS: ALB/GLOB RATIO 1.2 (1.0-2.1); ALBUMIN 3.7 g/dL (3.5-5.0); ALT/SGPT 85 U/L (9-52); AST/SGOT 24 U/L (14-36); BLOOD UREA NITROGEN 12 mg/dL (7-17); CALCIUM 8.4 mg/dl (8.6-10.4); GFR AFRICAN-AMERICAN > 60; GFR NON-AFRICAN AMERICAN > 60; MAGNESIUM 1.9 mg/dL (1.6-2.3)
[2017-08-11 07:59] LABS: HEPATITIS B SURFACE AG NEGATIVE (NEGATIVE)
[2017-08-11 08:05] LABS: HEPATITIS A IGM NEGATIVE (NEGATIVE); HEPATITIS B CORE AB Negative (NEGATIVE)
[2017-08-11 08:17] LABS: HEPATITIS C ANTIBODY Negative (NEGATIVE)
[2017-08-11 09:34] LABS: BANDS 1 % (0-2)
[2017-08-11 09:37] LABS: LYMPHOCYTE 6 % (20-40); MONOCYTE 2 % (0-10); NEUTROPHIL 91 % (50-75); TOTAL CELLS COUNTED 100
[2017-08-11 09:38] LABS: GIANT PLATELETS PRESENT; PLATELET ESTIMATE MARKEDLY DECREASED (NORMAL)
[2017-08-11 09:40] LABS: ANISOCYTOSIS SLIGHT
--- NOTE | 2017-08-11 09:51 | US ---
HISTORY: low platelet count COMPARISON: None. TECHNIQUE: Sonographic evaluation of the abdomen. FINDINGS: LIVER: Measures 16.5 Cm. Diffusely increased echogenicity of the liver parenchyma. No mass. Smooth contour. No biliary dilatation. GALLBLADDER: Cholelithiasis. No mural thickening. No pericholecystic fluid. Negative sonographic Henderson sign. Adjacent to the gallbladder, there is a peripherally echogenic/calcified structure with dense posterior acoustic shadowing. This corresponds to a peripherally calcified tubular low-density structure on CT examination of the prior day, possibly a calcified choledocholithiasis. COMMON BILE DUCT: Measures 8 mm. No stones. No dilatation. PANCREAS: Unremarkable as visualized. No mass. No ductal dilatation. RIGHT KIDNEY: Measures 10.3cm. Normal echogenicity. No calculus, mass, or hydronephrosis. LEFT KIDNEY: Measures 10.3cm. Normal echogenicity. No calculus, mass, or hydronephrosis. SPLEEN: Normal in size and contour. No mass. AORTA: No aneurysmal dilatation. IVC: Unremarkable. OTHER FINDINGS: None. IMPRESSION: Cholelithiasis without sonographic evidence of cholecystitis. Peripherally calcified structure adjacent to the gallbladder likely corresponds to what may represent a peripherally calcified choledocholithiasis on CT examination of the previous day. Minimal dilatation of the common bile duct, uncertain significance. No intrahepatic biliary dilatation or pancreatic ductal dilatation.
--- NOTE | 2017-08-11 11:30 | CP.PCM.PN ---
<Emigdio Ramires - Last Filed: 08/11/17 18:04> Subjective - Date & Time of Evaluation Date of Evaluation: 08/11/17 Time of Evaluation: 07:27 - Subjective Subjective: Dr. Carlos Canales's Service, Emigdio Ramires Can Washer PGY-1 Patient seen and examined at bedside. Per nursing no acute events occurred overnight. The patient reports a small headache today. The patient is tolerating diet and and had one bowel movement that was normal. The patient denies any chest pain, abdominal pain, fevers, chills, changes in vision, syncopal episodes, nausea, vomiting, lightheadedness, constipation, or any other complaints. Objective - Vital Signs/Intake and Output Vital Signs (last 24 hours): Temp Pulse Resp BP Pulse Ox 98.2 F 60 20 115/70 95 08/11/17 07:00 08/11/17 08:26 08/11/17 07:00 08/11/17 07:00 08/11/17 07:00 Intake and Output: 08/11/17 08/11/17 06:59 18:59 Intake Total 200 Balance 200 - Medications Medications: Current Medications Methylprednisolone (Solu-Medrol) 40 mg IVP Q12H ELOISA Last Admin: 08/11/17 06:07 Dose: 40 mg - Labs Labs: 08/11/17 05:54 08/11/17 05:54 PT 10.9 SECONDS (9.7-12.2) 08/11/17 05:54 INR 1.0 08/11/17 05:54 APTT 25 SECONDS (21-34) 08/11/17 05:54 - Head Exam Head Exam: ATRAUMATIC, NORMAL INSPECTION, NORMOCEPHALIC - Eye Exam Eye Exam: EOMI, Normal appearance, PERRL Pupil Exam: NORMAL ACCOMODATION, PERRL. absent: Irregular, Unequal - ENT Exam ENT Exam: Mucous Membranes Moist, Normal Oropharynx - Neck Exam Neck Exam: Full ROM, Normal Inspection. absent: Lymphadenopathy, Thyromegaly - Respiratory Exam Respiratory Exam: Clear to Ausculation Bilateral, NORMAL BREATHING PATTERN. absent: Chest Wall Tenderness, Prolonged Expiratory Phase, Respiratory Distress - Cardiovascular Exam Cardiovascular Exam: REGULAR RHYTHM, RRR, +S1, +S2. absent: Gallop, Rubs - GI/Abdominal Exam GI & Abdominal Exam: Soft, Normal Bowel Sounds. absent: Rigid - Extremities Exam Extremities Exam: Full ROM, Normal Inspection. absent: Pedal Edema - Back Exam Back Exam: NORMAL INSPECTION. absent: CVA tenderness (L), CVA tenderness (R), paraspinal tenderness - Neurological Exam Neurological Exam: Alert, Awake, CN II-XII Intact, Normal Gait, Oriented x3 - Psychiatric Exam Psychiatric exam: Normal Affect, Normal Mood - Skin Skin Exam: Dry, Intact, Normal Color, Warm Assessment and Plan - Assessment and Plan (Free Text) Plan: Severe thrombocytopenia -CT head: negative, see full report. -CT Abdomen/Pelvis: cholelithiasis, incidental peripherally calcifed tubular structure in the jose m hepatis, possible calcifed choledochal cyst. no evidence of urinary calculus or urinary tract obstruction. see full report. -Heme-onc, Dr. Afshin Boswell, rec's appreciated. -ED course: morphin 2mg IVP, Solumedrol 250mg IVP, Tylenol 925 PO once, Plateletpheresis - Solumedrol 40mg IV Q12 -f/u peripheral smear .HIV1/2, Hep panel and [id number] negative . -f/u medial paperwork (son will bring in, from doctor in [facility]- gave her an injection) -abd US: Cholelithiasis, dilated calcified choledocholithiasis -Patient transfused one bag of platlets. -CBC for 10pm tonight. If Platelet count remains low transfuse another bag of platelets. Hematuria -likely 2/2 severe thrombocytopenia -f/u abdominal ultrasound: Cholelithiasis, dilated calcified choledocholithiasis -UA 2+ protein; 3+ blood -Urine culture negative. Headache -CT head: negative, see full report. Prophylaxis Chemical anticoagulation C/I 2/2 thrombocytopenia SCDs C/I 2/2 thrombocytopenia Protonix 40mg IV q daily <Carlos Canales - Last Filed: 08/11/17 19:45> Objective - Vital Signs/Intake and Output Vital Signs (last 24 hours): Temp Pulse Resp BP Pulse Ox 98.0 F 86 20 117/72 98 08/11/17 15:00 08/11/17 16:43 08/11/17 15:00 08/11/17 15:00 08/11/17 17:56 Intake and Output: 08/11/17 08/12/17 18:59 06:59 Intake Total 196 Balance 196 - Medications Medications: Current Medications Methylprednisolone (Solu-Medrol) 40 mg IVP Q12H ELOISA Last Admin: 08/11/17 17:48 Dose: 40 mg - Labs Labs: 08/11/17 05:54 08/11/17 05:54 PT 10.9 SECONDS (9.7-12.2) 08/11/17 05:54 INR 1.0 08/11/17 05:54 APTT 25 SECONDS (21-34) 08/11/17 05:54 Attending/Attestation - Attestation I have personally seen and examined this patient.: Yes I have fully participated in the care of the patient.: Yes I have reviewed all pertinent clinical information, including history, physical exam and plan: Yes Notes (Text): 08/11/17 19:38 Patient was seen and examined at 5:30 PM 08/11/17 551 A with Holden Robe present Exam, assessment and plan were gone over with the resident. Please note on Exam: HEENT: buccal mucosa, pharynx and hard palate have areas of bruising Skin: there are multiple areas of bruising present on the bilateral arms and legs Extremities: pulses are strong and equal, capillary refill is 2 seconds, NO edema. However bilateral lateral malleoli there are soft, round, fluid filled areas. Patient received 1 unit of Platelets on 08/10/17 and then again 08/11/17. F/U repeat CBC at 10 PM 08/11/17 and if there has been NO improvement then medicine will order another unit of Platelets. Please also note that ADAMTS 13 is still pending. Spoke with Holden Nagel at length about Thrombocytopenia. He provided information that the patient was given and injection of Valerpan (betamethasone) in [facility] on 07/23/17 and the bruising did not start till 08/10/17. She is NOT taking any other medications, vitamins, minerals, herbs at home. She was last on Glucosamine back in May 2017. Patient is currently on Solumedrol 40 mg IV Q12H. Carlos Canales D.O.
[2017-08-11 23:01] LABS: BASO # 0.1 K/uL (0.0-0.2); BASO % 1.2 % (0.0-2.0); EOS # 0.1 K/uL (0.0-0.7); EOS % 0.9 % (0.0-4.0); HEMOGLOBIN 12.2 g/dL (11.0-16.0); LYMPH # 0.4 K/uL (1.0-4.3); LYMPH % 4.4 % (20.0-40.0); MEAN CELL VOLUME 92.2 fL (81.0-99.0); MEAN CORPUSCULAR HEMOGLOBIN 30.8 pg (27.0-31.0); MEAN CORPUSCULAR HGB CONC 33.4 g/dL (33.0-37.0); MONO # 0.2 K/uL (0.0-0.8); MONO % 2.6 % (0.0-10.0); NEUT # 8.8 K/uL (1.8-7.0); NEUT % 90.9 % (50.0-75.0); RBC 3.96 Mil/uL (3.80-5.20); RED CELL DISTRIBUTION WIDTH 13.1 % (11.5-14.5); WHITE BLOOD COUNT 9.6 K/uL (4.8-10.8)
[2017-08-11 23:04] LABS: PLATELET COUNT 4 K/uL (130-400)
[2017-08-11 23:26] LABS: LYMPHOCYTE 11 % (20-40); MONOCYTE 2 % (0-10); NEUTROPHIL 87 % (50-75); PLATELET ESTIMATE MARKEDLY DECREASED (NORMAL); TOTAL CELLS COUNTED 100
[2017-08-12] MEDS: MethylPREDNISolone 40 mg Vial IVP SCH ×2 (05:21→17:54)
[2017-08-12 08:10] LABS: BASO % 0.1 % (0.0-2.0); HEMOGLOBIN 12.8 g/dL (11.0-16.0); LYMPH # 0.9 K/uL (1.0-4.3); LYMPH % 8.2 % (20.0-40.0); MEAN CELL VOLUME 92.1 fL (81.0-99.0); MEAN CORPUSCULAR HEMOGLOBIN 31.1 pg (27.0-31.0); MEAN CORPUSCULAR HGB CONC 33.8 g/dL (33.0-37.0); MEAN PLATELET VOLUME 8.3 fL (7.2-11.7); MONO # 0.4 K/uL (0.0-0.8); MONO % 3.6 % (0.0-10.0); NEUT # 9.2 K/uL (1.8-7.0); NEUT % 88.1 % (50.0-75.0); RBC 4.13 Mil/uL (3.80-5.20); WHITE BLOOD COUNT 10.5 K/uL (4.8-10.8)
[2017-08-12 08:21] LABS: PLATELET COUNT 13 K/uL (130-400)
[2017-08-12 08:27] LABS: ALB/GLOB RATIO 1.1 (1.0-2.1); ALBUMIN 3.8 g/dL (3.5-5.0); ALT/SGPT 77 U/L (9-52); AST/SGOT 26 U/L (14-36); BLOOD UREA NITROGEN 15 mg/dL (7-17); CALCIUM 8.6 mg/dl (8.6-10.4); GFR AFRICAN-AMERICAN > 60; GFR NON-AFRICAN AMERICAN > 60
[2017-08-12 10:29] LABS: BANDS 1 % (0-2); LYMPHOCYTE 12 % (20-40); MONOCYTE 5 % (0-10); NEUTROPHIL 82 % (50-75); TOTAL CELLS COUNTED 100
[2017-08-12 10:30] LABS: PLATELET ESTIMATE MARKEDLY DECREASED (NORMAL)
--- NOTE | 2017-08-12 13:06 | CP.PCM.PN ---
<AishaDebora - Last Filed: 08/12/17 15:10> Subjective - Date & Time of Evaluation Date of Evaluation: 08/12/17 Time of Evaluation: 07:00 - Subjective Subjective: PGY 3- Heme/Onc Progress Note- Dr. Boswell's Service: Patient seen and examined at bedside this AM. Patient feels well and is ambulating. She is worried about persistent low platelets. Denies headache or bleeding this AM. Denies chest pain, SOB, fevers, chills, nausea, vomiting. Objective - Vital Signs/Intake and Output Vital Signs (last 24 hours): Temp Pulse Resp BP Pulse Ox 97.7 F 57 L 20 114/74 98 08/12/17 08:23 08/12/17 08:23 08/12/17 08:23 08/12/17 08:23 08/12/17 08:23 Intake and Output: 08/12/17 08/12/17 06:59 18:59 Intake Total 800 200 Balance 800 200 - Medications Medications: Current Medications Methylprednisolone (Solu-Medrol) 40 mg IVP Q12H ELOISA Last Admin: 08/12/17 05:21 Dose: 40 mg - Labs Labs: 08/12/17 07:54 08/12/17 07:54 PT 10.9 SECONDS (9.7-12.2) 08/11/17 05:54 INR 1.0 08/11/17 05:54 APTT 25 SECONDS (21-34) 08/11/17 05:54 - Constitutional Appears: No Acute Distress - Head Exam Head Exam: NORMAL INSPECTION, NORMOCEPHALIC - Eye Exam Eye Exam: EOMI, Normal appearance - ENT Exam ENT Exam: Mucous Membranes Moist - Respiratory Exam Respiratory Exam: Clear to Ausculation Bilateral, NORMAL BREATHING PATTERN - Cardiovascular Exam Cardiovascular Exam: REGULAR RHYTHM, +S1, +S2 - GI/Abdominal Exam GI & Abdominal Exam: Soft, Normal Bowel Sounds. 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 Boswell. Recommendations above as per attending. Rl Leonard, PGY 3 <Suleman Boswell - Last Filed: 08/12/17 21:14> Objective - Vital Signs/Intake and Output Vital Signs (last 24 hours): Temp Pulse Resp BP Pulse Ox 98.3 F 77 20 100/61 96 08/12/17 16:32 08/12/17 16:32 08/12/17 16:32 08/12/17 16:32 08/12/17 16:32 Intake and Output: 08/12/17 08/13/17 18:59 06:59 Intake Total 680 Balance 680 - Medications Medications: Current Medications Methylprednisolone (Solu-Medrol) 40 mg IVP Q12H ELOISA Last Admin: 08/12/17 17:54 Dose: 40 mg - Labs Labs: 08/12/17 07:54 08/12/17 07:54 PT 10.9 SECONDS (9.7-12.2) 08/11/17 05:54 INR 1.0 08/11/17 05:54 APTT 25 SECONDS (21-34) 08/11/17 05:54 Assessment and Plan (1) Thrombocytopenia Status: Acute - Assessment and Plan (Free Text) Assessment: Pt seen and examined, agree with residents note. Suspected ITP on steroids with improving platelet count. Will add IVIG if platelet count does not improve.
--- NOTE | 2017-08-12 19:23 | CP.PCM.PN ---
Addendum entered and electronically signed by Emigdio Ramires DO 08/12/17 19: 35: Physical exam: Hard palate and buccal cavity had petichia/brusing Arms bilaterally and legs bilaterally had petichia/bruising. Original Note: <Emigdio Ramires - Last Filed: 08/12/17 19:24> Subjective - Date & Time of Evaluation Date of Evaluation: 08/12/17 Time of Evaluation: 08:20 - Subjective Subjective: Dr. Carlos Canales's Service, Emigdio Ramirse-PGY1 Patient seen and examined at bedside. Per nursing no acute events occurred overnight. The patient does report a little headache today. The patient denies any chest pain, abdominal pain, fevers ,chills, syncopal episodes, changes in vision, vomiting, numbness or tingling in her hands or feet, lightheadedness, dizziness or any other complaints . Objective - Vital Signs/Intake and Output Vital Signs (last 24 hours): Temp Pulse Resp BP Pulse Ox 98.3 F 77 20 100/61 96 08/12/17 16:32 08/12/17 16:32 08/12/17 16:32 08/12/17 16:32 08/12/17 16:32 Intake and Output: 08/12/17 08/13/17 18:59 06:59 Intake Total 680 Balance 680 - Medications Medications: Current Medications Methylprednisolone (Solu-Medrol) 40 mg IVP Q12H ELOISA Last Admin: 08/12/17 17:54 Dose: 40 mg - Labs Labs: 08/12/17 07:54 08/12/17 07:54 PT 10.9 SECONDS (9.7-12.2) 08/11/17 05:54 INR 1.0 08/11/17 05:54 APTT 25 SECONDS (21-34) 08/11/17 05:54 - Head Exam Head Exam: ATRAUMATIC, NORMAL INSPECTION, NORMOCEPHALIC - Eye Exam Eye Exam: EOMI, Normal appearance, PERRL. absent: Periorbital tenderness Pupil Exam: NORMAL ACCOMODATION, PERRL. absent: Irregular, Unequal - ENT Exam ENT Exam: Mucous Membranes Moist, Normal Exam, Normal Oropharynx - Neck Exam Neck Exam: absent: Lymphadenopathy, Thyromegaly - Respiratory Exam Respiratory Exam: Clear to Ausculation Bilateral, NORMAL BREATHING PATTERN. absent: Chest Wall Tenderness, Prolonged Expiratory Phase, Respiratory Distress - Cardiovascular Exam Cardiovascular Exam: REGULAR RHYTHM, RRR, +S1, +S2. absent: Gallop, Rubs - GI/Abdominal Exam GI & Abdominal Exam: Soft, Normal Bowel Sounds. absent: Rigid, Hyperactive Bowel Sounds - Extremities Exam Extremities Exam: Full ROM. absent: Joint Swelling, Pedal Edema, Tenderness - Back Exam Back Exam: NORMAL INSPECTION. absent: CVA tenderness (L), CVA tenderness (R), paraspinal tenderness - Neurological Exam Neurological Exam: Alert, Awake, CN II-XII Intact, Normal Gait, Oriented x3 - Psychiatric Exam Psychiatric exam: Normal Affect, Normal Mood. absent: Depressed - Skin Skin Exam: Dry, Intact Assessment and Plan - Assessment and Plan (Free Text) Plan: Severe thrombocytopenia -CT head: negative, see full report. -CT Abdomen/Pelvis: cholelithiasis, incidental peripherally calcifed tubular structure in the jose m hepatis, possible calcifed choledochal cyst. no evidence of urinary calculus or urinary tract obstruction. see full report. -Heme-onc, Dr. Afshin Boswell, rec's appreciated. -ED course: morphin 2mg IVP, Solumedrol 250mg IVP, Tylenol 925 PO once, Plateletpheresis - Solumedrol 40mg IV Q12 -f/u peripheral smear .HIV1/2, Hep panel and [id number] negative . -f/u medial paperwork (son will bring in, from doctor in [facility]- gave her an injection) -abd US: Cholelithiasis, dilated calcified choledocholithiasis -Per Dr. Boswell conversation, possibility of transfusing IgG to the patient tomorrow if platelet count remains low. Will f/u tomorrow for further rec's. Hematuria -likely 2/2 severe thrombocytopenia -f/u abdominal ultrasound: Cholelithiasis, dilated calcified choledocholithiasis -UA 2+ protein; 3+ blood -Urine culture negative. -Patient currently not reporting. Will continue to monitor. Headache -CT head: negative, see full report. Prophylaxis Chemical anticoagulation C/I 2/2 thrombocytopenia SCDs C/I 2/2 thrombocytopenia Protonix 40mg IV q daily <Carlos Canales - Last Filed: 08/12/17 20:14> Objective - Vital Signs/Intake and Output Vital Signs (last 24 hours): Temp Pulse Resp BP Pulse Ox 98.3 F 77 20 100/61 96 08/12/17 16:32 08/12/17 16:32 08/12/17 16:32 08/12/17 16:32 08/12/17 16:32 Intake and Output: 08/12/17 08/13/17 18:59 06:59 Intake Total 680 Balance 680 - Medications Medications: Current Medications Methylprednisolone (Solu-Medrol) 40 mg IVP Q12H ELOISA Last Admin: 08/12/17 17:54 Dose: 40 mg - Labs Labs: 08/12/17 07:54 08/12/17 07:54 PT 10.9 SECONDS (9.7-12.2) 08/11/17 05:54 INR 1.0 08/11/17 05:54 APTT 25 SECONDS (21-34) 08/11/17 05:54 Attending/Attestation - Attestation I have personally seen and examined this patient.: Yes I have fully participated in the care of the patient.: Yes I have reviewed all pertinent clinical information, including history, physical exam and plan: Yes Notes (Text): 08/12/17 20:12 Patient was seen and examined at 5:45 PM 08/12/17 551 A with Holden Nagel present Exam, assessment and plan were gone over with the resident. Please note on Exam: HEENT: buccal mucosa, pharynx and hard palate have areas of bruising/petechia Skin: there are multiple areas of bruising present on the bilateral arms and legs Extremities: pulses are strong and equal, capillary refill is 2 seconds, NO edema. However bilateral lateral malleoli there are soft, round, fluid filled areas. Assessments: 1). Thrombocytopenia NOT likely TTP Consider ITP Patient received 1 unit of Platelets on 08/10/17 and then again 08/11/17. If platelets do not continue to rise then Heme/Onc to consider IV IgG Please also note that ADAMTS 13 is still pending. Spoke with Holden Nagel 08/11/17: at length about Thrombocytopenia. He provided information that the patient was given and injection of Valerpan (betamethasone ) in [place] on 07/23/17 and the bruising did not start till 08/10/17. She is NOT taking any other medications, vitamins, minerals, herbs at home. She was last on Glucosamine back in May 2017. Patient is currently on Solumedrol 40 mg IV Q12H. Carlos Canales D.O.
[2017-08-13] MEDS: MethylPREDNISolone 40 mg Vial IVP SCH ×2 (06:19→17:19)
[2017-08-13 08:10] LABS: BASO % 0.2 % (0.0-2.0); HEMOGLOBIN 13.8 g/dL (11.0-16.0); LYMPH # 1.8 K/uL (1.0-4.3); LYMPH % 18.5 % (20.0-40.0); MEAN CELL VOLUME 92.2 fL (81.0-99.0); MEAN CORPUSCULAR HEMOGLOBIN 31.3 pg (27.0-31.0); MEAN CORPUSCULAR HGB CONC 33.9 g/dL (33.0-37.0); MEAN PLATELET VOLUME 10.4 fL (7.2-11.7); MONO # 0.5 K/uL (0.0-0.8); MONO % 4.8 % (0.0-10.0); NEUT # 7.5 K/uL (1.8-7.0); NEUT % 76.5 % (50.0-75.0); RBC 4.42 Mil/uL (3.80-5.20); WHITE BLOOD COUNT 9.8 K/uL (4.8-10.8)
[2017-08-13 08:53] LABS: ALB/GLOB RATIO 1.1 (1.0-2.1); ALT/SGPT 66 U/L (9-52); AST/SGOT 17 U/L (14-36); BLOOD UREA NITROGEN 12 mg/dL (7-17); CALCIUM 9.1 mg/dl (8.6-10.4); GFR AFRICAN-AMERICAN > 60; GFR NON-AFRICAN AMERICAN > 60
--- NOTE | 2017-08-13 10:30 | CP.PCM.PN ---
<Emigdio Ramires - Last Filed: 08/13/17 10:32> Subjective - Date & Time of Evaluation Date of Evaluation: 08/13/17 Time of Evaluation: 08:22 - Subjective Subjective: Emigdio French Director Clinical Pharmacology-PGY1 Patient seen and examined at bedside. Per nursing no acute events occurred overnight. The patient reports feeling slightly fatigued today. She denies any chest pain, shortness of breath, fevers, chills, nausea, vomiting, changes in vision, abdominal pain, syncopal episodes, headaches, or any other complaints. Objective - Vital Signs/Intake and Output Vital Signs (last 24 hours): Temp Pulse Resp BP Pulse Ox 97.7 F 56 L 20 129/86 97 08/13/17 08:30 08/13/17 08:30 08/13/17 08:30 08/13/17 08:30 08/13/17 08:30 Intake and Output: 08/13/17 08/13/17 06:59 18:59 Intake Total 400 Balance 400 - Medications Medications: Current Medications Methylprednisolone (Solu-Medrol) 40 mg IVP Q12H ELOISA Last Admin: 08/13/17 06:19 Dose: 40 mg - Labs Labs: 08/13/17 07:58 08/13/17 07:58 PT 10.9 SECONDS (9.7-12.2) 08/11/17 05:54 INR 1.0 08/11/17 05:54 APTT 25 SECONDS (21-34) 08/11/17 05:54 - Head Exam Head Exam: ATRAUMATIC, NORMAL INSPECTION, NORMOCEPHALIC - Eye Exam Eye Exam: EOMI, Normal appearance, PERRL. absent: Periorbital tenderness Pupil Exam: NORMAL ACCOMODATION, PERRL. absent: Irregular, Unequal - ENT Exam Additional comments: bruising/petichiae appreciated in the buccal caivity and palate of the mouth - Neck Exam Neck Exam: Full ROM. absent: Lymphadenopathy, Thyromegaly - Respiratory Exam Respiratory Exam: Clear to Ausculation Bilateral, NORMAL BREATHING PATTERN. absent: Chest Wall Tenderness, Prolonged Expiratory Phase, Respiratory Distress - Cardiovascular Exam Cardiovascular Exam: REGULAR RHYTHM, RRR, +S1, +S2. absent: Rubs - GI/Abdominal Exam GI & Abdominal Exam: Soft, Normal Bowel Sounds. absent: Rigid, Hyperactive Bowel Sounds - Extremities Exam Extremities Exam: Full ROM, Normal Inspection. absent: Joint Swelling, Pedal Edema, Tenderness Additional comments: Upper extremity shows bruising/petichiae - Back Exam Back Exam: NORMAL INSPECTION. absent: CVA tenderness (R), paraspinal tenderness - Neurological Exam Neurological Exam: Alert, Awake, CN II-XII Intact, Oriented x3 - Psychiatric Exam Psychiatric exam: Normal Affect, Normal Mood - Skin Skin Exam: Dry, Intact, Normal Color, Warm Assessment and Plan - Assessment and Plan (Free Text) Plan: Severe thrombocytopenia -CT head: negative, see full report. -CT Abdomen/Pelvis: cholelithiasis, incidental peripherally calcifed tubular structure in the jose m hepatis, possible calcifed choledochal cyst. no evidence of urinary calculus or urinary tract obstruction. see full report. -Heme-onc, Dr. Afshin Boswell, rec's appreciated. -ED course: morphin 2mg IVP, Solumedrol 250mg IVP, Tylenol 925 PO once, Plateletpheresis - Solumedrol 40mg IV Q12 -f/u peripheral smear .HIV1/2, Hep panel and [id number] negative . -f/u medial paperwork (son will bring in, from doctor in [facility]- gave her an injection) -abd US: Cholelithiasis, dilated calcified choledocholithiasis -Plt count today 5. Will notify Dr. Boswell to obtain rec's for possible IgG transfusion. Hematuria -likely 2/2 severe thrombocytopenia -f/u abdominal ultrasound: Cholelithiasis, dilated calcified choledocholithiasis -UA 2+ protein; 3+ blood -Urine culture negative. -Patient currently not reporting. Will continue to monitor. Headache -CT head: negative, see full report. Prophylaxis Chemical anticoagulation C/I 2/2 thrombocytopenia SCDs C/I 2/2 thrombocytopenia Protonix 40mg IV q daily <Carlos Canales - Last Filed: 08/13/17 19:28> Objective - Vital Signs/Intake and Output Vital Signs (last 24 hours): Temp Pulse Resp BP Pulse Ox 99.0 F 78 20 106/70 95 08/13/17 17:03 08/13/17 17:03 08/13/17 17:03 08/13/17 17:03 08/13/17 17:03 Intake and Output: 08/13/17 08/14/17 18:59 06:59 Intake Total 530 Balance 530 - Medications Medications: Current Medications Acetaminophen (Tylenol 325mg Tab) 650 mg PO DAILY ELOISA Stop: 08/18/17 12:31 Last Admin: 08/13/17 12:36 Dose: 650 mg Diphenhydramine HCl (Benadryl) 25 mg PO DAILY ELOISA Stop: 08/18/17 12:31 Last Admin: 08/13/17 12:36 Dose: 25 mg Immune Globulin (Octagam 5%) 740 mls @ 60 mls/hr IV DAILY@1300 ELOISA Stop: 08/18/17 01:19 Last Admin: 08/13/17 14:25 Dose: 60 mls/hr Methylprednisolone (Solu-Medrol) 100 mg IVP DAILY ELOISA Stop: 08/18/17 12:31 Last Admin: 08/13/17 12:36 Dose: 100 mg - Labs Labs: 08/13/17 07:58 08/13/17 07:58 PT 10.9 SECONDS (9.7-12.2) 08/11/17 05:54 INR 1.0 08/11/17 05:54 APTT 25 SECONDS (21-34) 08/11/17 05:54 Attending/Attestation - Attestation I have personally seen and examined this patient.: Yes I have fully participated in the care of the patient.: Yes I have reviewed all pertinent clinical information, including history, physical exam and plan: Yes Notes (Text): 08/13/17 19:23 Patient was seen and examined at 12:30 PM 08/13/17 551 A with Holden Nagel present Exam, assessment and plan were gone over with the resident. Please note on Exam: HEENT: buccal mucosa, pharynx and hard palate have areas of bruising Skin: there are multiple areas of bruising present on the bilateral arms and legs Extremities: pulses are strong and equal, capillary refill is 2 seconds, NO edema. However bilateral lateral malleoli there are soft, round, fluid filled areas. Assessments: 1). Thrombocytopenia Received 2 units of Platelets and has been on IV Solemdrol since admission, however no significant improvement in Platelets. NOT TTP due to NO schistocytes on Peripheral Smear, NO fever, NO Renal Failure NOT on any medications that could have caused it: she received betamethasone in [facility] on 07/23/17 for eczema like rash on bilateral anterior lower legs Heme/Onc recommended IV IgG at 400 mg per kg and to premedicate with Solumedrol , Tylenol, and Benadryl for 5 days starting 08/13/17 and these orders have been placed. Explained to patient and son Robe. Carlso Canales D.O.
--- NOTE | 2017-08-13 12:52 | CP.PCM.PN ---
<Debora Leonard - Last Filed: 08/13/17 12:50> Subjective - Date & Time of Evaluation Date of Evaluation: 08/13/17 Time of Evaluation: 10:00 - Subjective Subjective: PGY 3- Heme/Onc Progress Note- Dr. Boswell's Service: Patient seen and examined at bedside this AM. Patient reports issues overnight with roommate. Admits bruising in her mouth has improved. Admits bruising over all extremities is "not getting better". Otherwise she denies chest pain, SOB, fevers, chills, nausea, vomiting, bleeding in the urine or in her stool. Objective - Vital Signs/Intake and Output Vital Signs (last 24 hours): Temp Pulse Resp BP Pulse Ox 97.7 F 56 L 20 129/86 97 08/13/17 08:30 08/13/17 08:30 08/13/17 08:30 08/13/17 08:30 08/13/17 08:30 Intake and Output: 08/13/17 08/13/17 06:59 18:59 Intake Total 400 Balance 400 - Medications Medications: Current Medications Acetaminophen (Tylenol 325mg Tab) 650 mg PO DAILY [facility] Stop: 08/18/17 12:31 Last Admin: 08/13/17 12:36 Dose: 650 mg Diphenhydramine HCl (Benadryl) 25 mg PO DAILY [facility] Stop: 08/18/17 12:31 Last Admin: 08/13/17 12:36 Dose: 25 mg Immune Globulin (Octagam 5%) 740 mls @ 0 mls/hr IV DAILY@1300 [facility] PRN Reason: UD Stop: 08/17/17 13:01 Methylprednisolone (Solu-Medrol) 40 mg IVP Q12H [facility] Last Admin: 08/13/17 06:19 Dose: 40 mg Methylprednisolone (Solu-Medrol) 100 mg IVP DAILY [facility] Stop: 08/18/17 12:31 Last Admin: 08/13/17 12:36 Dose: 100 mg - Labs Labs: 08/13/17 07:58 08/13/17 07:58 PT 10.9 SECONDS (9.7-12.2) 08/11/17 05:54 INR 1.0 08/11/17 05:54 APTT 25 SECONDS (21-34) 08/11/17 05:54 - Constitutional Appears: No Acute Distress - Head Exam Head Exam: NORMAL INSPECTION, NORMOCEPHALIC - Eye Exam Eye Exam: EOMI, Normal appearance - Respiratory Exam Respiratory Exam: Clear to Ausculation Bilateral. absent: Rhonchi, Wheezes - Cardiovascular Exam Cardiovascular Exam: REGULAR RHYTHM, +S1, +S2 - GI/Abdominal Exam GI & Abdominal Exam: Soft. 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 Patient will have to be pre-medicated with Solumedrol, Benadryl and Tylenol prior to treatments Case discussed with Dr. Boswell. Recommendations above as per attending. Rl Leonard, PGY 3 <Suleman Boswell - Last Filed: 08/13/17 22:05> Objective - Vital Signs/Intake and Output Vital Signs (last 24 hours): Temp Pulse Resp BP Pulse Ox 99.0 F 78 20 106/70 95 08/13/17 17:03 08/13/17 17:03 08/13/17 17:03 08/13/17 17:03 08/13/17 17:03 Intake and Output: 08/13/17 08/14/17 18:59 06:59 Intake Total 530 Balance 530 - Medications Medications: Current Medications Acetaminophen (Tylenol 325mg Tab) 650 mg PO DAILY [facility] Stop: 08/18/17 12:31 Last Admin: 08/13/17 12:36 Dose: 650 mg Diphenhydramine HCl (Benadryl) 25 mg PO DAILY [facility] Stop: 08/18/17 12:31 Last Admin: 08/13/17 12:36 Dose: 25 mg Immune Globulin (Octagam 5%) 740 mls @ 60 mls/hr IV DAILY@1300 [facility] Stop: 08/18/17 01:19 Last Admin: 08/13/17 14:25 Dose: 60 mls/hr Methylprednisolone (Solu-Medrol) 100 mg IVP DAILY [facility] Stop: 08/18/17 12:31 Last Admin: 08/13/17 12:36 Dose: 100 mg - Labs Labs: 08/13/17 07:58 08/13/17 07:58 PT 10.9 SECONDS (9.7-12.2) 08/11/17 05:54 INR 1.0 08/11/17 05:54 APTT 25 SECONDS (21-34) 08/11/17 05:54 Assessment and Plan (1) Thrombocytopenia Status: Acute - Assessment and Plan (Free Text) Assessment: Pt seen and examine, agree with residents note. Add IVIG today as plt count downtrending despite steroids.
[2017-08-13] MEDS ORDERED: IMMUNE GLOBULIN 50 MG/ML IV SCH ×2 (13:00→13:54)
[2017-08-13] MEDS ORDERED: Immune Globulin 50 MG/ML (OCTAGAM 5%) 10 GM/200 ML IV SCH (13:00)
[2017-08-13] MEDS: IMMUNE GLOBULIN 50 MG/ML IV SCH (14:25)
[2017-08-14 07:31] LABS: BASO % 0.1 % (0.0-2.0); LYMPH # 1.5 K/uL (1.0-4.3); LYMPH % 17.4 % (20.0-40.0); MEAN CELL VOLUME 91.2 fL (81.0-99.0); MEAN CORPUSCULAR HEMOGLOBIN 31.9 pg (27.0-31.0); MEAN CORPUSCULAR HGB CONC 34.9 g/dL (33.0-37.0); MEAN PLATELET VOLUME 10.3 fL (7.2-11.7); MONO # 0.6 K/uL (0.0-0.8); MONO % 6.8 % (0.0-10.0); NEUT # 6.6 K/uL (1.8-7.0); NEUT % 75.7 % (50.0-75.0); RBC 4.4 Mil/uL (3.80-5.20); WHITE BLOOD COUNT 8.8 K/uL (4.8-10.8)
[2017-08-14 07:45] LABS: ALBUMIN 3.8 g/dL (3.5-5.0); ALT/SGPT 75 U/L (9-52); AST/SGOT 20 U/L (14-36); BLOOD UREA NITROGEN 14 mg/dL (7-17); CALCIUM 9.1 mg/dl (8.6-10.4); GFR AFRICAN-AMERICAN > 60; GFR NON-AFRICAN AMERICAN > 60
[2017-08-14 07:57] LABS: ALB/GLOB RATIO 0.8 (1.0-2.1)
[2017-08-14] MEDS ORDERED: Immune Globulin 50 MG/ML (OCTAGAM 5%) 10 GM/200 ML IV SCH (10:00)
--- NOTE | 2017-08-14 13:01 | CP.PCM.PN ---
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 Per nursing no acute events occurred overnight. The reports a slight headache from yesterday. She denies any chest pain, shortness of breath, fevers, chills, nausea, vomiting, changes in vision, abdominal pain, syncopal episodes, headaches, or any other complaints. Objective - Vital Signs/Intake and Output Vital Signs (last 24 hours): Temp Pulse Resp BP Pulse Ox 98.2 F 62 20 128/81 97 08/14/17 07:20 08/14/17 07:20 08/14/17 07:20 08/14/17 07:20 08/14/17 07:20 Intake and Output: 08/14/17 08/14/17 06:59 18:59 Intake Total 1300 Balance 1300 - Medications Medications: Current Medications Acetaminophen (Tylenol 325mg Tab) 650 mg PO DAILY [facility] Stop: 08/18/17 12:31 Last Admin: 08/14/17 09:49 Dose: 650 mg Diphenhydramine HCl (Benadryl) 25 mg PO DAILY [facility] Stop: 08/18/17 12:31 Last Admin: 08/14/17 09:49 Dose: 25 mg Immune Globulin (Octagam 5%) 740 mls @ 60 mls/hr IV DAILY@1300 [facility] Stop: 08/18/17 01:19 Last Admin: 08/13/17 14:25 Dose: 60 mls/hr Methylprednisolone (Solu-Medrol) 100 mg IVP DAILY [facility] Stop: 08/18/17 12:31 Last Admin: 08/14/17 09:50 Dose: 100 mg - Labs Labs: 08/14/17 07:25 08/14/17 07:25 PT 10.9 SECONDS (9.7-12.2) 08/11/17 05:54 INR 1.0 08/11/17 05:54 APTT 25 SECONDS (21-34) 08/11/17 05:54 - Head Exam Head Exam: ATRAUMATIC, NORMAL INSPECTION, NORMOCEPHALIC - Eye Exam Eye Exam: EOMI, Normal appearance, PERRL. absent: Periorbital tenderness Pupil Exam: NORMAL ACCOMODATION, PERRL. absent: Irregular, Unequal - ENT Exam ENT Exam: Mucous Membranes Moist, Normal Exam, Normal Oropharynx - Neck Exam Neck Exam: Normal Inspection. absent: Lymphadenopathy, Thyromegaly - Respiratory Exam Respiratory Exam: Clear to Ausculation Bilateral, NORMAL BREATHING PATTERN. absent: Respiratory Distress - Cardiovascular Exam Cardiovascular Exam: REGULAR RHYTHM, RRR, +S1, +S2. absent: Gallop, Rubs - GI/Abdominal Exam GI & Abdominal Exam: Soft, Normal Bowel Sounds. absent: Rigid, Hyperactive Bowel Sounds - Extremities Exam Extremities Exam: Full ROM, Normal Inspection. absent: Joint Swelling, Pedal Edema, Tenderness - Back Exam Back Exam: NORMAL INSPECTION. absent: CVA tenderness (L), CVA tenderness (R), paraspinal tenderness - Neurological Exam Neurological Exam: Alert, Awake, CN II-XII Intact, Oriented x3 - Psychiatric Exam Psychiatric exam: Normal Affect, Normal Mood - Skin Skin Exam: Dry, Intact Assessment and Plan - Assessment and Plan (Free Text) Plan: Severe thrombocytopenia -CT head: negative, see full report. -CT Abdomen/Pelvis: cholelithiasis, incidental peripherally calcifed tubular structure in the jose m hepatis, possible calcifed choledochal cyst. no evidence of urinary calculus or urinary tract obstruction. see full report. -Heme-onc, Dr. Afshin Boswell, rec's appreciated. -ED course: morphin 2mg IVP, Solumedrol 250mg IVP, Tylenol 925 PO once, Plateletpheresis -Continue methylprednisolone 100mg IVP Daily -peripheral smear: No blasts, no platelet clumps, WBC within normal limits, RBC within normal limits. -f/u medial paperwork (son will bring in, from doctor in [facility]- gave her an injection) -abd US: Cholelithiasis, dilated calcified choledocholithiasis -Plt count today 14. Will continue IgG infusion (Day 2 of 5 completed) Hematuria -likely 2/2 severe thrombocytopenia -f/u abdominal ultrasound: Cholelithiasis, dilated calcified choledocholithiasis -UA 2+ protein; 3+ blood -Urine culture negative. -Patient currently not reporting. Will continue to monitor. Headache -CT head: negative, see full report. Prophylaxis Chemical anticoagulation C/I 2/2 thrombocytopenia SCDs C/I 2/2 thrombocytopenia <Carlos Canales - Last Filed: 08/14/17 19:50> Objective - Vital Signs/Intake and Output Vital Signs (last 24 hours): Temp Pulse Resp BP Pulse Ox 98 F 84 20 128/81 95 08/14/17 16:45 08/14/17 16:45 08/14/17 16:45 08/14/17 07:20 08/14/17 16:45 - Medications Medications: Current Medications Acetaminophen (Tylenol 325mg Tab) 650 mg PO DAILY [facility] Stop: 08/18/17 12:31 Last Admin: 08/14/17 09:49 Dose: 650 mg Diphenhydramine HCl (Benadryl) 25 mg PO DAILY [facility] Stop: 08/18/17 12:31 Last Admin: 08/14/17 09:49 Dose: 25 mg Immune Globulin (Octagam 5%) 740 mls @ 60 mls/hr IV DAILY@1300 [facility] Stop: 08/18/17 01:19 Last Admin: 08/14/17 13:08 Dose: 60 mls/hr Methylprednisolone (Solu-Medrol) 100 mg IVP DAILY [facility] Stop: 08/18/17 12:31 Last Admin: 08/14/17 09:50 Dose: 100 mg - Labs Labs: 08/14/17 07:25 08/14/17 07:25 PT 10.9 SECONDS (9.7-12.2) 08/11/17 05:54 INR 1.0 08/11/17 05:54 APTT 25 SECONDS (21-34) 08/11/17 05:54 Attending/Attestation - Attestation I have personally seen and examined this patient.: Yes I have fully participated in the care of the patient.: Yes I have reviewed all pertinent clinical information, including history, physical exam and plan: Yes Notes (Text): 08/14/17 19:48 Patient was seen and examined at 1:15 PM 08/14/17 551 A with Holden Nagel present Exam, assessment and plan were gone over with the resident. Please note on Exam: HEENT: buccal mucosa, pharynx and hard palate have areas of bruising Skin: there are multiple areas of bruising present on the bilateral arms and legs Extremities: pulses are strong and equal, capillary refill is 2 seconds, NO edema. However bilateral lateral malleoli there are soft, round, fluid filled areas. Assessments: 1). Thrombocytopenia Received 2 units of Platelets and has been on IV Solemdrol since admission, however there was no significant improvement in Platelets. Heme/Onc recommended IV IgG at 400 mg per kg and to premedicate with Solumedrol , Tylenol, and Benadryl for 5 days starting 08/13/17 with last dose on 08/14/17. NOT TTP due to NO schistocytes on Peripheral Smear, NO fever, NO Renal Failure NOT on any medications that could have caused it: she received betamethasone in [facility] on 07/23/17 for eczema like rash on bilateral anterior lower legs Carlos Canales D.O.
[2017-08-14] MEDS: IMMUNE GLOBULIN 50 MG/ML IV SCH (13:08)
[2017-08-15 07:47] LABS: ALBUMIN 3.6 g/dL (3.5-5.0); ALT/SGPT 70 U/L (9-52); AST/SGOT 21 U/L (14-36); BLOOD UREA NITROGEN 16 mg/dL (7-17); CALCIUM 8.8 mg/dl (8.6-10.4); GFR AFRICAN-AMERICAN > 60; GFR NON-AFRICAN AMERICAN > 60
[2017-08-15 08:09] LABS: ALB/GLOB RATIO 0.7 (1.0-2.1)
[2017-08-15 08:13] LABS: BASO % 0.2 % (0.0-2.0); EOS % 0.2 % (0.0-4.0); HEMOGLOBIN 13.6 g/dL (11.0-16.0); LYMPH # 1.9 K/uL (1.0-4.3); LYMPH % 26.6 % (20.0-40.0); MEAN CELL VOLUME 90.8 fL (81.0-99.0); MEAN CORPUSCULAR HGB CONC 35.2 g/dL (33.0-37.0); MEAN PLATELET VOLUME 9.6 fL (7.2-11.7); MONO # 0.6 K/uL (0.0-0.8); MONO % 8.4 % (0.0-10.0); NEUT # 4.6 K/uL (1.8-7.0); NEUT % 64.6 % (50.0-75.0); NRBC % 0.1 % (0.0-2.0); RBC 4.26 Mil/uL (3.80-5.20); RED CELL DISTRIBUTION WIDTH 12.8 % (11.5-14.5); WHITE BLOOD COUNT 7.1 K/uL (4.8-10.8)
--- NOTE | 2017-08-15 12:47 | CP.PCM.PN ---
<Debora Leonard - Last Filed: 08/15/17 12:38> Subjective - Date & Time of Evaluation Date of Evaluation: 08/15/17 Time of Evaluation: 10:00 - Subjective Subjective: PGY 3 Progress Note- Heme/Onc Service- Dr. Boswell: Patient seen and examined at bedside this morning. Patient reports feeling well and is ambulating. States bruises are getting better over her extremities. No other complaints today. Objective - Vital Signs/Intake and Output Vital Signs (last 24 hours): Temp Pulse Resp BP Pulse Ox 98.4 F 70 20 115/77 96 08/15/17 08:08 08/15/17 08:08 08/15/17 08:08 08/15/17 08:08 08/15/17 08:08 Intake and Output: 08/15/17 08/15/17 06:59 18:59 Intake Total 420 Balance 420 - Medications Medications: Current Medications Acetaminophen (Tylenol 325mg Tab) 650 mg PO DAILY [facility] Stop: 08/18/17 12:31 Last Admin: 08/15/17 10:01 Dose: 650 mg Diphenhydramine HCl (Benadryl) 25 mg PO DAILY [facility] Stop: 08/18/17 12:31 Last Admin: 08/15/17 10:01 Dose: 25 mg Immune Globulin (Octagam 5%) 740 mls @ 60 mls/hr IV DAILY@1300 [facility] Stop: 08/18/17 01:19 Last Admin: 08/14/17 13:08 Dose: 60 mls/hr Methylprednisolone (Solu-Medrol) 100 mg IVP DAILY [facility] Stop: 08/18/17 12:31 Last Admin: 08/15/17 10:01 Dose: 100 mg - Labs Labs: 08/15/17 07:14 08/15/17 07:14 PT 10.9 SECONDS (9.7-12.2) 08/11/17 05:54 INR 1.0 08/11/17 05:54 APTT 25 SECONDS (21-34) 08/11/17 05:54 - Constitutional Appears: No Acute Distress - Head Exam Head Exam: NORMAL INSPECTION, NORMOCEPHALIC - Eye Exam Eye Exam: EOMI - ENT Exam ENT Exam: Mucous Membranes Moist - Respiratory Exam Respiratory Exam: Clear to Ausculation Bilateral, NORMAL BREATHING PATTERN - Cardiovascular Exam Cardiovascular Exam: REGULAR RHYTHM, +S1, +S2 - GI/Abdominal Exam GI & Abdominal Exam: Soft. 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 Day 3 of 5. Patient will have to be pre-medicated with Solumedrol, Benadryl and Tylenol prior to treatments Case discussed with Dr. Boswell. Recommendations above as per attending. Rl Leonard, PGY 3 <Suleman Boswell - Last Filed: 08/15/17 22:30> Objective - Vital Signs/Intake and Output Vital Signs (last 24 hours): Temp Pulse Resp BP Pulse Ox 99.0 F 97 H 20 123/75 97 08/15/17 16:55 08/15/17 16:55 08/15/17 16:55 08/15/17 16:55 08/15/17 16:55 - Medications Medications: Current Medications Acetaminophen (Tylenol 325mg Tab) 650 mg PO DAILY [facility] Stop: 08/18/17 12:31 Last Admin: 08/15/17 10:01 Dose: 650 mg Diphenhydramine HCl (Benadryl) 25 mg PO DAILY [facility] Stop: 08/18/17 12:31 Last Admin: 08/15/17 10:01 Dose: 25 mg Immune Globulin (Octagam 5%) 740 mls @ 60 mls/hr IV DAILY@1300 [facility] Stop: 08/18/17 01:19 Last Admin: 08/15/17 13:34 Dose: 60 mls/hr Methylprednisolone (Solu-Medrol) 100 mg IVP DAILY [facility] Stop: 08/18/17 12:31 Last Admin: 08/15/17 10:01 Dose: 100 mg - Labs Labs: 08/15/17 07:14 08/15/17 07:14 PT 10.9 SECONDS (9.7-12.2) 08/11/17 05:54 INR 1.0 08/11/17 05:54 APTT 25 SECONDS (21-34) 08/11/17 05:54 Assessment and Plan (1) Thrombocytopenia Status: Acute - Assessment and Plan (Free Text) Assessment: Pt seen and examined, agree with residents note. ITP with improving plt count with steroids and IVIG.
[2017-08-15] MEDS: IMMUNE GLOBULIN 50 MG/ML IV SCH (13:34)
--- NOTE | 2017-08-15 15:14 | CP.PCM.PN ---
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 Per nursing no acute events occurred overnight. The patient is reporting feeling a lot better today. The patient states her energy level has improved as well. She denies any chest pain, shortness of breath, fevers, chills, nausea, vomiting, changes in vision, abdominal pain, syncopal episodes, headaches, or any other complaints. Objective - Vital Signs/Intake and Output Vital Signs (last 24 hours): Temp Pulse Resp BP Pulse Ox 98.4 F 70 20 115/77 96 08/15/17 08:08 08/15/17 08:08 08/15/17 08:08 08/15/17 08:08 08/15/17 08:08 Intake and Output: 08/15/17 08/15/17 06:59 18:59 Intake Total 420 Balance 420 - Medications Medications: Current Medications Acetaminophen (Tylenol 325mg Tab) 650 mg PO DAILY [facility] Stop: 08/18/17 12:31 Last Admin: 08/15/17 10:01 Dose: 650 mg Diphenhydramine HCl (Benadryl) 25 mg PO DAILY [facility] Stop: 08/18/17 12:31 Last Admin: 08/15/17 10:01 Dose: 25 mg Immune Globulin (Octagam 5%) 740 mls @ 60 mls/hr IV DAILY@1300 [facility] Stop: 08/18/17 01:19 Last Admin: 08/15/17 13:34 Dose: 60 mls/hr Methylprednisolone (Solu-Medrol) 100 mg IVP DAILY [facility] Stop: 08/18/17 12:31 Last Admin: 08/15/17 10:01 Dose: 100 mg - Labs Labs: 08/15/17 07:14 08/15/17 07:14 PT 10.9 SECONDS (9.7-12.2) 08/11/17 05:54 INR 1.0 08/11/17 05:54 APTT 25 SECONDS (21-34) 08/11/17 05:54 - Head Exam Head Exam: ATRAUMATIC, NORMAL INSPECTION, NORMOCEPHALIC - Eye Exam Eye Exam: EOMI, Normal appearance, PERRL. absent: Nystagmus Pupil Exam: NORMAL ACCOMODATION, PERRL. absent: Irregular, Unequal - ENT Exam ENT Exam: Mucous Membranes Moist, Normal Oropharynx - Neck Exam Neck Exam: absent: Lymphadenopathy, Thyromegaly - Respiratory Exam Respiratory Exam: Clear to Ausculation Bilateral, NORMAL BREATHING PATTERN. absent: Chest Wall Tenderness, Prolonged Expiratory Phase, Respiratory Distress - Cardiovascular Exam Cardiovascular Exam: REGULAR RHYTHM, +S1, +S2 - GI/Abdominal Exam GI & Abdominal Exam: Soft, Normal Bowel Sounds. absent: Rigid, Hyperactive Bowel Sounds - Extremities Exam Extremities Exam: Full ROM. absent: Joint Swelling, Pedal Edema - Back Exam Back Exam: NORMAL INSPECTION. absent: CVA tenderness (L), CVA tenderness (R), paraspinal tenderness - Neurological Exam Neurological Exam: Alert, Awake, CN II-XII Intact, Oriented x3 - Psychiatric Exam Psychiatric exam: Normal Affect, Normal Mood - Skin Skin Exam: Dry, Intact Assessment and Plan - Assessment and Plan (Free Text) Plan: Severe thrombocytopenia -CT head: negative, see full report. -CT Abdomen/Pelvis: cholelithiasis, incidental peripherally calcifed tubular structure in the jose m hepatis, possible calcifed choledochal cyst. no evidence of urinary calculus or urinary tract obstruction. see full report. -Heme-onc, Dr. Afshin Boswell, rec's appreciated. -ED course: morphin 2mg IVP, Solumedrol 250mg IVP, Tylenol 925 PO once, Plateletpheresis -Continue methylprednisolone 100mg IVP Daily -peripheral smear: No blasts, no platelet clumps, WBC within normal limits, RBC within normal limits. -abd US: Cholelithiasis, dilated calcified choledocholithiasis -Plt count today 71. Will continue IgG infusion (Day 3 of 5 completed) Hematuria -likely 2/2 severe thrombocytopenia -f/u abdominal ultrasound: Cholelithiasis, dilated calcified choledocholithiasis -UA 2+ protein; 3+ blood -Urine culture negative. -Patient currently not reporting any urinary symptoms.. Will continue to monitor. Headache -CT head: negative, see full report. Prophylaxis Chemical anticoagulation C/I 2/2 thrombocytopenia SCDs C/I 2/2 thrombocytopenia <Carlos Canales - Last Filed: 08/15/17 19:56> Objective - Vital Signs/Intake and Output Vital Signs (last 24 hours): Temp Pulse Resp BP Pulse Ox 99.0 F 97 H 20 123/75 97 08/15/17 16:55 08/15/17 16:55 08/15/17 16:55 08/15/17 16:55 08/15/17 16:55 - Medications Medications: Current Medications Acetaminophen (Tylenol 325mg Tab) 650 mg PO DAILY [facility] Stop: 08/18/17 12:31 Last Admin: 08/15/17 10:01 Dose: 650 mg Diphenhydramine HCl (Benadryl) 25 mg PO DAILY [facility] Stop: 08/18/17 12:31 Last Admin: 08/15/17 10:01 Dose: 25 mg Immune Globulin (Octagam 5%) 740 mls @ 60 mls/hr IV DAILY@1300 [facility] Stop: 08/18/17 01:19 Last Admin: 08/15/17 13:34 Dose: 60 mls/hr Methylprednisolone (Solu-Medrol) 100 mg IVP DAILY [facility] Stop: 08/18/17 12:31 Last Admin: 08/15/17 10:01 Dose: 100 mg - Labs Labs: 08/15/17 07:14 08/15/17 07:14 PT 10.9 SECONDS (9.7-12.2) 08/11/17 05:54 INR 1.0 08/11/17 05:54 APTT 25 SECONDS (21-34) 08/11/17 05:54 Attending/Attestation - Attestation I have personally seen and examined this patient.: Yes I have fully participated in the care of the patient.: Yes I have reviewed all pertinent clinical information, including history, physical exam and plan: Yes Notes (Text): 08/15/17 19:55 Patient was seen and examined at 11:15 AM 08/15/17 552 B Exam, assessment and plan were gone over with the resident. Please note on Exam: HEENT: buccal mucosa, pharynx and hard palate have areas of bruising Skin: there are multiple areas of bruising present on the bilateral arms and legs Extremities: pulses are strong and equal, capillary refill is 2 seconds, NO edema. However bilateral lateral malleoli there are soft, round, fluid filled areas. Assessments: 1). Thrombocytopenia Received 2 units of Platelets and has been on IV Solemdrol since admission, however there was no significant improvement in Platelets. Heme/Onc recommended IV IgG at 400 mg per kg and to premedicate with Solumedrol , Tylenol, and Benadryl for 5 days starting 08/13/17 with last dose on 08/14/17. Platelets are improving since the start of Iv IgG NOT TTP due to NO schistocytes on Peripheral Smear, NO fever, NO Renal Failure NOT on any medications that could have caused it: she received betamethasone in [facility] on 07/23/17 for eczema like rash on bilateral anterior lower legs Carlos Canales D.O.
[2017-08-16 07:28] LABS: BASO % 0.1 % (0.0-2.0); EOS % 0.1 % (0.0-4.0); HEMOGLOBIN 13.3 g/dL (11.0-16.0); LYMPH # 1.4 K/uL (1.0-4.3); LYMPH % 21.5 % (20.0-40.0); MEAN CELL VOLUME 91.2 fL (81.0-99.0); MEAN CORPUSCULAR HEMOGLOBIN 31.4 pg (27.0-31.0); MEAN CORPUSCULAR HGB CONC 34.5 g/dL (33.0-37.0); MEAN PLATELET VOLUME 8.6 fL (7.2-11.7); MONO # 0.5 K/uL (0.0-0.8); MONO % 8.5 % (0.0-10.0); NEUT # 4.4 K/uL (1.8-7.0); NEUT % 69.8 % (50.0-75.0); RBC 4.22 Mil/uL (3.80-5.20); RED CELL DISTRIBUTION WIDTH 12.8 % (11.5-14.5); WHITE BLOOD COUNT 6.4 K/uL (4.8-10.8)
[2017-08-16 07:39] LABS: ALB/GLOB RATIO 0.7 (1.0-2.1); ALBUMIN 3.5 g/dL (3.5-5.0); ALT/SGPT 57 U/L (9-52); AST/SGOT 22 U/L (14-36); BLOOD UREA NITROGEN 19 mg/dL (7-17); CALCIUM 8.6 mg/dl (8.6-10.4); GFR AFRICAN-AMERICAN > 60; GFR NON-AFRICAN AMERICAN > 60
[2017-08-16] MEDS: IMMUNE GLOBULIN 50 MG/ML IV SCH (12:49)
[2017-08-16] MEDS ORDERED: Dextrose 50% SYRINGE Inj (50 ml) IV PRN (14:50)
[2017-08-16] MEDS ORDERED: Glucagon Recombinant 1 mg Inj IM PRN (14:50)
--- NOTE | 2017-08-16 15:47 | CP.PCM.PN ---
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 Per nursing no acute events occurred overnight. The patient reports no complaints today.. The patient states her energy level has improved as well. She denies any chest pain, shortness of breath, fevers, chills, nausea, vomiting, changes in vision, abdominal pain, syncopal episodes, headaches, or any other complaints. Objective - Vital Signs/Intake and Output Vital Signs (last 24 hours): Temp Pulse Resp BP Pulse Ox 99.0 F 89 20 112/72 97 08/16/17 15:40 08/16/17 15:40 08/16/17 15:40 08/16/17 15:40 08/16/17 15:40 Intake and Output: 08/16/17 08/16/17 06:59 18:59 Intake Total 460 Balance 460 - Medications Medications: Current Medications Acetaminophen (Tylenol 325mg Tab) 650 mg PO DAILY [facility] Stop: 08/18/17 12:31 Last Admin: 08/16/17 10:45 Dose: 650 mg Dextrose (Dextrose 50% Inj) 0 ml IV STAT PRN; Protocol PRN Reason: Hypoglycemia Protocol Dextrose (Glutose 15) 0 gm PO ONCE PRN; Protocol PRN Reason: Hypoglycemia Protocol Diphenhydramine HCl (Benadryl) 25 mg PO DAILY [facility] Stop: 08/18/17 12:31 Last Admin: 08/16/17 10:05 Dose: 25 mg Glucagon (Glucagen Diagnostic Kit) 0 mg IM STAT PRN; Protocol PRN Reason: Hypoglycemia Protocol Immune Globulin (Octagam 5%) 740 mls @ 60 mls/hr IV DAILY@1300 [facility] Stop: 08/18/17 01:19 Last Admin: 08/16/17 12:49 Dose: 60 mls/hr Dextrose (Dextrose 5% In Water 1000 Ml) 1,000 mls @ 0 mls/hr IV .Q0M PRN; Protocol; Per Protocol PRN Reason: Hypoglycemia Protocol Insulin Human Regular (Novolin R) 0 unit SC ACHS [facility] PRN Reason: Protocol Methylprednisolone (Solu-Medrol) 100 mg IVP DAILY [facility] Stop: 08/18/17 12:31 Last Admin: 08/16/17 10:44 Dose: 100 mg - Labs Labs: 08/16/17 07:07 08/16/17 07:07 PT 10.9 SECONDS (9.7-12.2) 08/11/17 05:54 INR 1.0 08/11/17 05:54 APTT 25 SECONDS (21-34) 08/11/17 05:54 - Head Exam Head Exam: ATRAUMATIC, NORMAL INSPECTION, NORMOCEPHALIC - Eye Exam Eye Exam: EOMI, Normal appearance, PERRL. absent: Periorbital tenderness Pupil Exam: NORMAL ACCOMODATION, PERRL. absent: Irregular, Unequal - ENT Exam ENT Exam: Mucous Membranes Moist, Normal Oropharynx - Neck Exam Neck Exam: Normal Inspection. absent: Lymphadenopathy, Thyromegaly - Respiratory Exam Respiratory Exam: Clear to Ausculation Bilateral, NORMAL BREATHING PATTERN. absent: Chest Wall Tenderness, Prolonged Expiratory Phase - Cardiovascular Exam Cardiovascular Exam: REGULAR RHYTHM, +S1, +S2 - GI/Abdominal Exam GI & Abdominal Exam: Soft, Normal Bowel Sounds. absent: Rigid, Hyperactive Bowel Sounds - Extremities Exam Extremities Exam: Full ROM. absent: Joint Swelling, Pedal Edema - Back Exam Back Exam: NORMAL INSPECTION. absent: CVA tenderness (L), CVA tenderness (R), paraspinal tenderness - Neurological Exam Neurological Exam: Alert, Awake, CN II-XII Intact - Psychiatric Exam Psychiatric exam: Normal Affect, Normal Mood - Skin Skin Exam: Dry, Intact, Normal Color Assessment and Plan - Assessment and Plan (Free Text) Plan: Severe thrombocytopenia -CT head: negative, see full report. -CT Abdomen/Pelvis: cholelithiasis, incidental peripherally calcifed tubular structure in the jose m hepatis, possible calcifed choledochal cyst. no evidence of urinary calculus or urinary tract obstruction. see full report. -Heme-onc, Dr. Afshin Boswell, rec's appreciated. -ED course: morphin 2mg IVP, Solumedrol 250mg IVP, Tylenol 925 PO once, Plateletpheresis -Continue methylprednisolone 100mg IVP Daily -peripheral smear: No blasts, no platelet clumps, WBC within normal limits, RBC within normal limits. -abd US: Cholelithiasis, dilated calcified choledocholithiasis -Plt count today 121. Will continue IgG infusion (Day 3 of 5 completed) Hematuria -likely 2/2 severe thrombocytopenia -f/u abdominal ultrasound: Cholelithiasis, dilated calcified choledocholithiasis -UA 2+ protein; 3+ blood -Urine culture negative. -Patient currently not reporting any urinary symptoms.. Will continue to monitor. Headache -CT head: negative, see full report. Prophylaxis Chemical anticoagulation C/I 2/2 thrombocytopenia SCDs C/I 2/2 thrombocytopenia <Carlos Canales - Last Filed: 08/16/17 20:29> Objective - Vital Signs/Intake and Output Vital Signs (last 24 hours): Temp Pulse Resp BP Pulse Ox 99.0 F 89 20 112/72 97 08/16/17 15:40 08/16/17 15:40 08/16/17 15:40 08/16/17 15:40 08/16/17 15:40 Intake and Output: 08/16/17 08/17/17 18:59 06:59 Intake Total 460 Balance 460 - Medications Medications: Current Medications Acetaminophen (Tylenol 325mg Tab) 650 mg PO DAILY [facility] Stop: 08/18/17 12:31 Last Admin: 08/16/17 10:45 Dose: 650 mg Dextrose (Dextrose 50% Inj) 0 ml IV STAT PRN; Protocol PRN Reason: Hypoglycemia Protocol Dextrose (Glutose 15) 0 gm PO ONCE PRN; Protocol PRN Reason: Hypoglycemia Protocol Diphenhydramine HCl (Benadryl) 25 mg PO DAILY [facility] Stop: 08/18/17 12:31 Last Admin: 08/16/17 10:05 Dose: 25 mg Glucagon (Glucagen Diagnostic Kit) 0 mg IM STAT PRN; Protocol PRN Reason: Hypoglycemia Protocol Immune Globulin (Octagam 5%) 740 mls @ 60 mls/hr IV DAILY@1300 [facility] Stop: 08/18/17 01:19 Last Admin: 08/16/17 12:49 Dose: 60 mls/hr Dextrose (Dextrose 5% In Water 1000 Ml) 1,000 mls @ 0 mls/hr IV .Q0M PRN; Protocol; Per Protocol PRN Reason: Hypoglycemia Protocol Insulin Human Regular (Novolin R) 0 unit SC ACHS [facility] PRN Reason: Protocol Last Admin: 08/16/17 17:39 Dose: 8 unit Methylprednisolone (Solu-Medrol) 100 mg IVP DAILY [facility] Stop: 08/18/17 12:31 Last Admin: 08/16/17 10:44 Dose: 100 mg - Labs Labs: 08/16/17 07:07 08/16/17 07:07 PT 10.9 SECONDS (9.7-12.2) 08/11/17 05:54 INR 1.0 08/11/17 05:54 APTT 25 SECONDS (21-34) 08/11/17 05:54 Attending/Attestation - Attestation I have personally seen and examined this patient.: Yes I have fully participated in the care of the patient.: Yes I have reviewed all pertinent clinical information, including history, physical exam and plan: Yes Notes (Text): 08/16/17 20:26 Patient was seen and examined at 2:00 PM 08/16/17 552 B Exam, assessment and plan were gone over with the resident. Please note on Exam: HEENT: buccal mucosa, pharynx and hard palate have areas of bruising Skin: there are multiple areas of bruising present on the bilateral arms and legs Extremities: pulses are strong and equal, capillary refill is 2 seconds, NO edema. However bilateral lateral malleoli there are soft, round, fluid filled areas. Assessments: 1). Thrombocytopenia NOT TTP due to NO schistocytes on Peripheral Smear, NO fever, NO Renal Failure NOT on any medications that could have caused it: she received betamethasone in [facility] on 07/23/17 for eczema like rash on bilateral anterior lower legs Received 2 units of Platelets and has been on IV Solemdrol since admission, however there was no significant improvement in Platelets. Heme/Onc recommended IV IgG at 400 mg per kg and to premedicate with Solumedrol , Tylenol, and Benadryl for 5 days starting 08/13/17 with last dose on 08/17/17. Platelets are improving since the start of Iv IgG and are upto 121 today. RISS added to elevated Blood Glucose likely secondary to the Solumedrol Carlos Canales D.O.
[2017-08-16] MEDS: (Novolin R) Insulin Human Regular 100 units/ml vial SC SCH ×2 (17:39→21:40)
[2017-08-17] MEDS: (Novolin R) Insulin Human Regular 100 units/ml vial SC SCH ×4 (08:02→21:41)
[2017-08-17 11:18] LABS: BASO % 0.1 % (0.0-2.0); EOS % 0.3 % (0.0-4.0); HEMOGLOBIN 14.4 g/dL (11.0-16.0); LYMPH # 2.3 K/uL (1.0-4.3); LYMPH % 27.5 % (20.0-40.0); MEAN CELL VOLUME 91.5 fL (81.0-99.0); MEAN CORPUSCULAR HEMOGLOBIN 30.8 pg (27.0-31.0); MEAN CORPUSCULAR HGB CONC 33.6 g/dL (33.0-37.0); MEAN PLATELET VOLUME 8.2 fL (7.2-11.7); MONO # 0.7 K/uL (0.0-0.8); MONO % 8.3 % (0.0-10.0); NEUT # 5.4 K/uL (1.8-7.0); NEUT % 63.8 % (50.0-75.0); RBC 4.68 Mil/uL (3.80-5.20); RED CELL DISTRIBUTION WIDTH 13.1 % (11.5-14.5); WHITE BLOOD COUNT 8.4 K/uL (4.8-10.8)
[2017-08-17 11:59] LABS: ALB/GLOB RATIO 0.6 (1.0-2.1); ALBUMIN 3.8 g/dL (3.5-5.0); ALT/SGPT 65 U/L (9-52); AST/SGOT 27 U/L (14-36); BLOOD UREA NITROGEN 23 mg/dL (7-17); CALCIUM 9.1 mg/dl (8.6-10.4); GFR AFRICAN-AMERICAN > 60; GFR NON-AFRICAN AMERICAN 58
--- NOTE | 2017-08-17 12:47 | CP.PCM.PN ---
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 Per nursing no acute events occurred overnight. The patient reports no complaints today. The patient is tolerating diet well and having bowel movements with no issues. She denies any chest pain , shortness of breath, fevers, chills, nausea, vomiting, changes in vision, abdominal pain, syncopal episodes, headaches, or any other complaints. Objective - Vital Signs/Intake and Output Vital Signs (last 24 hours): Temp Pulse Resp BP Pulse Ox 98.7 F 60 20 93/61 L 96 08/17/17 08:36 08/17/17 08:36 08/17/17 08:36 08/17/17 08:36 08/17/17 08:36 Intake and Output: 08/17/17 08/17/17 06:59 18:59 Intake Total 900 Balance 900 - Medications Medications: Current Medications Acetaminophen (Tylenol 325mg Tab) 650 mg PO DAILY [facility] Stop: 08/18/17 12:31 Last Admin: 08/17/17 12:15 Dose: 650 mg Dextrose (Dextrose 50% Inj) 0 ml IV STAT PRN; Protocol PRN Reason: Hypoglycemia Protocol Dextrose (Glutose 15) 0 gm PO ONCE PRN; Protocol PRN Reason: Hypoglycemia Protocol Diphenhydramine HCl (Benadryl) 25 mg PO DAILY [facility] Stop: 08/18/17 12:31 Last Admin: 08/17/17 12:14 Dose: 25 mg Glucagon (Glucagen Diagnostic Kit) 0 mg IM STAT PRN; Protocol PRN Reason: Hypoglycemia Protocol Immune Globulin (Octagam 5%) 740 mls @ 60 mls/hr IV DAILY@1300 [facility] Stop: 08/18/17 01:19 Last Admin: 08/16/17 12:49 Dose: 60 mls/hr Dextrose (Dextrose 5% In Water 1000 Ml) 1,000 mls @ 0 mls/hr IV .Q0M PRN; Protocol; Per Protocol PRN Reason: Hypoglycemia Protocol Insulin Human Regular (Novolin R) 0 unit SC ACHS [facility] PRN Reason: Protocol Last Admin: 08/17/17 12:21 Dose: 2 unit Methylprednisolone (Solu-Medrol) 100 mg IVP DAILY [facility] Stop: 08/18/17 12:31 Last Admin: 08/17/17 12:16 Dose: 100 mg - Labs Labs: 08/17/17 11:10 08/17/17 11:10 PT 10.9 SECONDS (9.7-12.2) 08/11/17 05:54 INR 1.0 08/11/17 05:54 APTT 25 SECONDS (21-34) 08/11/17 05:54 - Head Exam Head Exam: ATRAUMATIC, NORMAL INSPECTION, NORMOCEPHALIC - Eye Exam Eye Exam: EOMI, Normal appearance, PERRL. absent: Periorbital tenderness Pupil Exam: NORMAL ACCOMODATION, PERRL. absent: Irregular, Unequal - ENT Exam ENT Exam: Mucous Membranes Moist, Normal Exam, Normal Oropharynx - Neck Exam Neck Exam: absent: Lymphadenopathy, Thyromegaly - Respiratory Exam Respiratory Exam: Clear to Ausculation Bilateral, NORMAL BREATHING PATTERN. absent: Chest Wall Tenderness, Prolonged Expiratory Phase, Respiratory Distress - Cardiovascular Exam Cardiovascular Exam: REGULAR RHYTHM, RRR, +S1, +S2. absent: Rubs - GI/Abdominal Exam GI & Abdominal Exam: Soft, Normal Bowel Sounds. absent: Rigid, Hyperactive Bowel Sounds - Extremities Exam Additional comments: bruising improving on the lower extremities bilaterally - Neurological Exam Neurological Exam: Alert, Awake, CN II-XII Intact - Psychiatric Exam Psychiatric exam: Normal Affect, Normal Mood - Skin Skin Exam: Dry, Intact, Normal Color, Warm Assessment and Plan - Assessment and Plan (Free Text) Plan: Severe thrombocytopenia -CT head: negative, see full report. -CT Abdomen/Pelvis: cholelithiasis, incidental peripherally calcifed tubular structure in the jose m hepatis, possible calcifed choledochal cyst. no evidence of urinary calculus or urinary tract obstruction. see full report. -Heme-onc, Dr. Afshin Boswell, rec's appreciated. -ED course: morphin 2mg IVP, Solumedrol 250mg IVP, Tylenol 925 PO once, Plateletpheresis -Continue methylprednisolone 100mg IVP Daily -peripheral smear: No blasts, no platelet clumps, WBC within normal limits, RBC within normal limits. -abd US: Cholelithiasis, dilated calcified choledocholithiasis -Plt count today 229. Will continue IgG infusion (Day 4 of 5 completed) Hematuria -likely 2/2 severe thrombocytopenia -f/u abdominal ultrasound: Cholelithiasis, dilated calcified choledocholithiasis -UA 2+ protein; 3+ blood -Urine culture negative. -Patient currently not reporting any urinary symptoms.. Will continue to monitor. Headache -CT head: negative, see full report. Prophylaxis Chemical anticoagulation C/I 2/2 thrombocytopenia SCDs C/I 2/2 thrombocytopenia <Carlos Canales - Last Filed: 08/17/17 14:06> Objective - Vital Signs/Intake and Output Vital Signs (last 24 hours): Temp Pulse Resp BP Pulse Ox 98.7 F 60 20 93/61 L 96 08/17/17 08:36 08/17/17 08:36 08/17/17 08:36 08/17/17 08:36 08/17/17 08:36 Intake and Output: 08/17/17 08/17/17 06:59 18:59 Intake Total 900 Balance 900 - Medications Medications: Current Medications Acetaminophen (Tylenol 325mg Tab) 650 mg PO DAILY [facility] Stop: 08/18/17 12:31 Last Admin: 08/17/17 12:15 Dose: 650 mg Dextrose (Dextrose 50% Inj) 0 ml IV STAT PRN; Protocol PRN Reason: Hypoglycemia Protocol Dextrose (Glutose 15) 0 gm PO ONCE PRN; Protocol PRN Reason: Hypoglycemia Protocol Diphenhydramine HCl (Benadryl) 25 mg PO DAILY [facility] Stop: 08/18/17 12:31 Last Admin: 08/17/17 12:14 Dose: 25 mg Glucagon (Glucagen Diagnostic Kit) 0 mg IM STAT PRN; Protocol PRN Reason: Hypoglycemia Protocol Immune Globulin (Octagam 5%) 740 mls @ 60 mls/hr IV DAILY@1300 [facility] Stop: 08/18/17 01:19 Last Admin: 08/17/17 13:58 Dose: 60 mls/hr Dextrose (Dextrose 5% In Water 1000 Ml) 1,000 mls @ 0 mls/hr IV .Q0M PRN; Protocol; Per Protocol PRN Reason: Hypoglycemia Protocol Insulin Human Regular (Novolin R) 0 unit SC ACHS [facility] PRN Reason: Protocol Last Admin: 01/28/18 12:21 Dose: 2 unit Methylprednisolone (Solu-Medrol) 100 mg IVP DAILY [facility] Stop: 08/18/17 12:31 Last Admin: 08/17/17 12:16 Dose: 100 mg - Labs Labs: 08/17/17 11:10 08/17/17 11:10 PT 10.9 SECONDS (9.7-12.2) 08/11/17 05:54 INR 1.0 08/11/17 05:54 APTT 25 SECONDS (21-34) 08/11/17 05:54 Attending/Attestation - Attestation I have personally seen and examined this patient.: Yes I have fully participated in the care of the patient.: Yes I have reviewed all pertinent clinical information, including history, physical exam and plan: Yes Notes (Text): 08/17/17 14:01 Patient was seen and examined at 1:45 PM 08/17/17 552 B with Son Robe present Currently upon FULL ROS: NO chest pain NO palpitations NO coughing NO SOB/Wheezing NO abdominal pain NO n/v/d/c NO black stools or bloody stools NO buring/pain with urination NO lightheadedness/dizziness NO new changes in vision NO new changes in hearing NO paresthesias NO edema Please note on Exam: HEENT: buccal mucosa, pharynx and hard palate have areas of bruising Cardio: NS1 and NS2, NO M/R/G Resp: CTA B/L, NO R/R/W GI: BSx4, Soft, NT, ND, NO HSM, NO guarding/rebound tenderness Skin: there are multiple areas of bruising present on the bilateral arms and legs Extremities: pulses are strong and equal, capillary refill is 2 seconds, NO edema. However bilateral lateral malleoli there are soft, round, fluid filled areas that are decreasing in size and nontender to palpation. Neuro: CN II through XII are grossly intact Assessments: 1). Thrombocytopenia NOT TTP due to NO schistocytes on Peripheral Smear, NO fever, NO Renal Failure NOT on any medications that could have caused it: she received betamethasone in [facility] on 07/23/17 for eczema like rash on bilateral anterior lower legs Received 2 units of Platelets and has been on IV Solemdrol since admission, however there was no significant improvement in Platelets. Heme/Onc recommended IV IgG at 400 mg per kg and to premedicate with Solumedrol , Tylenol, and Benadryl for 5 days starting 08/13/17 with last dose on 08/17/17. Platelets are improving since the start of Iv IgG and are upto 227 today. RISS added to elevated Blood Glucose likely secondary to the Solumedrol Repeat CBC in morning 08/18/17 and platelets are stable then discharge to home after speaking with Hematology/Oncology Dr. Boswell. Carlos Canales D.O.
[2017-08-17] MEDS: IMMUNE GLOBULIN 50 MG/ML IV SCH (13:58)
[2017-08-18 00:25] VITALS: RESP 20
[2017-08-18] MEDS: (Novolin R) Insulin Human Regular 100 units/ml vial SC SCH ×2 (07:48→12:00)
[2017-08-18 08:05] LABS: BASO % 0.1 % (0.0-2.0); EOS % 0.1 % (0.0-4.0); HEMOGLOBIN 12.8 g/dL (11.0-16.0); LYMPH # 1.2 K/uL (1.0-4.3); MEAN CELL VOLUME 90.9 fL (81.0-99.0); MEAN CORPUSCULAR HEMOGLOBIN 31.7 pg (27.0-31.0); MEAN CORPUSCULAR HGB CONC 34.8 g/dL (33.0-37.0); MEAN PLATELET VOLUME 7.7 fL (7.2-11.7); MONO # 0.5 K/uL (0.0-0.8); MONO % 6.9 % (0.0-10.0); NEUT # 4.9 K/uL (1.8-7.0); NEUT % 74.9 % (50.0-75.0); NRBC % 0.1 % (0.0-2.0); RBC 4.04 Mil/uL (3.80-5.20); RED CELL DISTRIBUTION WIDTH 13.1 % (11.5-14.5); WHITE BLOOD COUNT 6.5 K/uL (4.8-10.8)
[2017-08-18 08:44] LABS: ALB/GLOB RATIO 0.6 (1.0-2.1); ALBUMIN 3.3 g/dL (3.5-5.0); ALT/SGPT 49 U/L (9-52); AST/SGOT 18 U/L (14-36); BLOOD UREA NITROGEN 22 mg/dL (7-17); CALCIUM 8.2 mg/dl (8.6-10.4); GFR AFRICAN-AMERICAN > 60; GFR NON-AFRICAN AMERICAN > 60
[2017-08-18 10:46] VITALS: BP 113/73; PULSE 54; TEMP 97.4; O2SAT 95
[2017-08-18 12:50] LABS: OSMOLALITY,URINE 858 mosm/kg (300-1000)
--- NOTE | 2017-08-18 19:15 | CP.PCM.DIS ---
Provider - Provider Date of Admission: 08/10/17 12:24 Attending physician: Carlos Canales MD Primary care physician: PMD: None Consults: Heme/Onc: Dr. Boswell Time Spent in preparation of Discharge (in minutes): 65 Hospital Course - Lab Results Lab Results: Micro Results 08/10/17 14:30 Blood Blood Culture - Final NO GROWTH AFTER 5 DAYS 08/10/17 14:30 Blood Gram Stain - Final TEST NOT PERFORMED 08/10/17 14:45 Blood Blood Culture - Final NO GROWTH AFTER 5 DAYS 08/10/17 14:45 Blood Gram Stain - Final TEST NOT PERFORMED 08/10/17 15:30 Urine,Clean Catch Urine Culture - Final No Growth (<1,000 CFU/ML) Most Recent Lab Values WBC 6.5 K/uL (4.8-10.8) 08/18/17 07:34 RBC 4.04 Mil/uL (3.80-5.20) 08/18/17 07:34 Hgb 12.8 g/dL (11.0-16.0) 08/18/17 07:34 Hct 36.7 % (34.0-47.0) 08/18/17 07:34 MCV 90.9 fL (81.0-99.0) 08/18/17 07:34 MCH 31.7 pg (27.0-31.0) H 08/18/17 07:34 MCHC 34.8 g/dL (33.0-37.0) 08/18/17 07:34 RDW 13.1 % (11.5-14.5) 08/18/17 07:34 Plt Count 227 K/uL (130-400) 08/18/17 07:34 MPV 7.7 fL (7.2-11.7) 08/18/17 07:34 Neut % (Auto) 74.9 % (50.0-75.0) 08/18/17 07:34 Lymph % (Auto) 18.0 % (20.0-40.0) L 08/18/17 07:34 [place] % (Auto) 6.9 % (0.0-10.0) 08/18/17 07:34 Eos % (Auto) 0.1 % (0.0-4.0) 08/18/17 07:34 Baso % (Auto) 0.1 % (0.0-2.0) 08/18/17 07:34 Neut # 4.9 K/uL (1.8-7.0) 08/18/17 07:34 Lymph # 1.2 K/uL (1.0-4.3) 08/18/17 07:34 Oxford # 0.5 K/uL (0.0-0.8) 08/18/17 07:34 Eos # 0.0 K/uL (0.0-0.7) 08/18/17 07:34 Baso # 0.0 K/uL (0.0-0.2) 08/18/17 07:34 Neutrophils % (Manual) 82 % (50-75) H 08/12/17 07:54 Band Neutrophils % 1 % (0-2) 08/12/17 07:54 Lymphocytes % (Manual) 12 % (20-40) L 08/12/17 07:54 Monocytes % (Manual) 5 % (0-10) 08/12/17 07:54 Eosinophils % (Manual) 2 % (0-4) 08/10/17 10:50 Differential Comment 08/10/17 10:50 Platelet Estimate Markedly decreased (NORMAL) L 08/12/17 07:54 Giant Platelets Present 08/11/17 05:54 RBC Morphology Normal 08/12/17 07:54 Anisocytosis (manual) Slight 08/11/17 05:54 Smear Path Review 08/10/17 10:50 PT 10.9 SECONDS (9.7-12.2) 08/11/17 05:54 INR 1.0 08/11/17 05:54 APTT 25 SECONDS (21-34) 08/11/17 05:54 [id number] Inhibitor 194 % Activity (68-163) H 08/11/17 06:45 [id number] Inhibit Titer (()) 08/11/17 06:45 Sodium 124 mmol/L (132-148) L 08/18/17 07:34 Potassium 4.4 mmol/L (3.6-5.2) 08/18/17 07:34 Chloride 94 mmol/L (98-107) L 08/18/17 07:34 Carbon Dioxide 25 mmol/L (22-30) 08/18/17 07:34 Anion Gap 10 (10-20) 08/18/17 07:34 BUN 22 mg/dL (7-17) H 08/18/17 07:34 Creatinine 0.7 mg/dL (0.7-1.2) 08/18/17 07:34 Est GFR ( Amer) > 60 08/18/17 07:34 Est GFR (Non-Af Amer) > 60 08/18/17 07:34 POC Glucose (mg/dL) 291 mg/dL (65-110) H 08/18/17 11:11 Random Glucose 221 mg/dL (65-105) H 08/18/17 07:34 Serum Osmolality 296 mosm/kg (272-300) 08/18/17 11:09 Calcium 8.2 mg/dl (8.6-10.4) L 08/18/17 07:34 Phosphorus 4.0 mg/dL (2.5-4.5) 08/11/17 05:54 Magnesium 1.9 mg/dL (1.6-2.3) 08/11/17 05:54 Total Bilirubin 0.8 mg/dL (0.2-1.3) 08/18/17 07:34 AST 18 U/L (14-36) 08/18/17 07:34 ALT 49 U/L (9-52) 08/18/17 07:34 Alkaline Phosphatase 72 U/L (38-126) 08/18/17 07:34 Lactate Dehydrogenase 455 U/L (313-618) 08/10/17 14:41 Total Protein 9.0 g/dL (6.3-8.3) H 08/18/17 07:34 Albumin 3.3 g/dL (3.5-5.0) L 08/18/17 07:34 Globulin 5.7 gm/dL (2.2-3.9) H 08/18/17 07:34 Albumin/Globulin Ratio 0.6 (1.0-2.1) L 08/18/17 07:34 Procalcitonin < 0.05 NG/ML (0.19-0.49) L 08/11/17 05:54 Urine Color Red (YELLOW) 08/10/17 10:50 Urine Clarity Clear (Clear) 08/10/17 10:50 Urine pH 6.0 (5.0-8.0) 08/10/17 10:50 Ur Specific Goodrich 1.003 (1.003-1.030) 08/10/17 10:50 Urine Protein 2+ mg/dL (NEGATIVE) H 08/10/17 10:50 Urine Glucose (UA) Normal mg/dL (Normal) 08/10/17 10:50 Urine Ketones Negative mg/dL (NEGATIVE) 08/10/17 10:50 Urine Blood 3+ (NEGATIVE) H 08/10/17 10:50 Urine Nitrate Negative (NEGATIVE) 08/10/17 10:50 Urine Bilirubin Negative (NEGATIVE) 08/10/17 10:50 Urine Urobilinogen Normal mg/dL (0.2-1.0) 08/10/17 10:50 Ur Leukocyte Esterase Neg Carly/uL (Negative) 08/10/17 10:50 Urine WBC (Auto) 2 /hpf (0-5) 08/10/17 10:50 Urine RBC (Auto) 228 /hpf (0-3) H 08/10/17 10:50 Urine Bacteria Rare (<OCC) 08/10/17 10:50 Urine Osmolality 858 mosm/kg (300-1000) 08/18/17 12:28 Ur Random Sodium 27 mmol/L 08/18/17 12:28 Urine HCG, Qual Negative (NEGATIVE) 08/10/17 10:50 Urine Opiates Screen Positive (NEGATIVE) H 08/10/17 15:35 Urine Methadone Screen Negative (NEGATIVE) 08/10/17 15:35 Ur Barbiturates Screen Negative (NEGATIVE) 08/10/17 15:35 Ur Phencyclidine Scrn Negative (NEGATIVE) 08/10/17 15:35 Ur Amphetamines Screen Negative (NEGATIVE) 08/10/17 15:35 U Benzodiazepines Scrn Negative (NEGATIVE) 08/10/17 15:35 U Oth Cocaine Metabols Negative (NEGATIVE) 08/10/17 15:35 U Cannabinoids Screen Negative (NEGATIVE) 08/10/17 15:35 Alcohol, Quantitative < 10 mg/dl (0-10) 08/10/17 14:41 Hepatitis A IgM Ab Negative (NEGATIVE) 08/10/17 14:41 Hep Bs Antigen Negative (NEGATIVE) 08/10/17 14:41 Hep B Core IgM Ab Negative (NEGATIVE) 08/10/17 14:41 Hepatitis C Antibody Negative (NEGATIVE) 08/10/17 14:41 HIV 1&2 Antibody Screen Negative (NEGATIVE) 08/10/17 14:41 Blood Type B POSITIVE 08/10/17 10:59 Antibody Screen Negative 08/10/17 10:59 - Hospital Course Hospital Course: Discharge Summary PMD: None Consults: Heme/Onc(Dr. Boswell) PRINCIPAL DISCHARGE DIAGNOSES: Thrombocytopenia CC: petechia and hematuria HISTORY OF PRESENT ILLNESS: This 52 year old female with no significant PMHx presents to the ED c/o headache since last night and scattered bruising, petechia, and hematuria since this morning. She took ASA last night with no relief of her headache, located in the occipital region. She also takes OTC Glucosamine Chondr. daily and Motrin PRN for "join aches." This is her first overt episode of petechia and bruising, however she admits that over the last 2 months, it has taken her longer to stop bleeding from minor cuts. She was recently in [facility] and experienced 2d of vomiting and diarrhea between 07/30 and 07/31/17. She feels this is from ingesting a dish or rice, beans, and chicken (reports water is filtered where they stay). She saw a doctor who injected her with unknown medication, and she felt well the next day, catching a return flight on 08/01/17. Her son will bring in the medical records for review. She currently denies any fevers, chills, trauma, n/v, photophobia, dysuria, or any additional acute complaints. PMHx: none PSHx: c section 1998 Meds: Glucosamine Chondr 500 Complex 1 Capsule Orally bid Allergies: NKDA FamHx: father: from [place]; mom: heart disease; grandfather (maternal): pancreatic cancer SocHx: 1-2 beers per month PMD: Dr. Amaro SUMMARY OF COURSE: Ada Tomas is a 52 year old female who was admitted at [facility] from 08/10/17-08/18/17. While admitted the patient was seen by Hematology/Oncology. Received 2 units of Platelets and has been on IV Solemdrol since admission, however there was no significant improvement in Platelets. Heme/Onc recommended IV IgG at 400 mg per kg and to premedicate with Solumedrol, Tylenol, and Benadryl for 5 days starting 08/13/17 with last dose on 08/17/17. Platelets are improving since the start of Iv IgG and are upto 277 and completed her last infusion on 08/17/17. Platelets remained stable and the patient was discharged. Imaging: Cervical xray:negative for fracture. Lumbar spine xray:mild degenerative changes lower lumbar spine with facet hypertrophy Thoracic xray: negative CT abdomen pelvis: negative urinary calculus or urinary tract obstruction, cholelithiasis, possible calcified choledochal cyst Abdomen ultrasound: cholelithiasis, common minimal dilatation of the bile duct (See full report) Advised patient to follow up at [facility] located in the [facility], to set up appointment and establish care. The patient will receive her referral to Dr. Boswell's clinic there as well. Patient is to follow up in the clinic within 7-10 days of discharge. She will have a repeat CBC and if her platelets remain normal we will continue the prednisone taper started upon discharge today. Patient advised to return to emergency department for any new or worsening symptoms. Discharge Medications: 1. Prednisone 90mg PO Daily, #7 2. Pepcid 20mg PO BID Daily ,#[address] Boswell's phone conversation, patient is to take one prednisone tab daily for a total of seven days and return to clinic within that time to have platelet count re-evaluated. If platelets remain stable we can continue the taper to 80 mg PO daily, 70mg... 60mg ... 50mg... etc. Discharge Exam - Head Exam Head Exam: ATRAUMATIC, NORMAL INSPECTION, NORMOCEPHALIC - Eye Exam Eye Exam: EOMI, Normal appearance, PERRL. absent: Periorbital tenderness Pupil Exam: NORMAL ACCOMODATION. absent: Irregular, Unequal - ENT Exam ENT Exam: Mucous Membranes Moist, Normal Oropharynx - Respiratory Exam Respiratory Exam: Clear to PA & Lateral, NORMAL BREATHING PATTERN, UNREMARKABLE. absent: Rales - Cardiovascular Exam Cardiovascular Exam: REGULAR RHYTHM, RRR, +S1, +S2. absent: Rubs - GI/Abdominal Exam GI & Abdominal Exam: Normal Bowel Sounds, Soft - Extremities Exam Extremities exam: full ROM - Back Exam Back exam: NORMAL INSPECTION. absent: CVA tenderness (L), CVA tenderness (R), paraspinal tenderness - Neurological Exam Neurological exam: Alert, CN II-XII Intact, Normal Gait, Oriented x3 - Psychiatric Exam Psychiatric exam: Normal Affect, Normal Mood - Skin Skin Exam: Dry, Intact, Normal Color, Warm Additional comments: Lower extremity bruising improved from initial examination. Resolving. Discharge Plan - Discharge Medications Prescriptions: Famotidine [Pepcid] 20 mg PO BID #28 tab predniSONE [Prednisone] 90 mg PO DAILY #7 tab - Follow Up Plan Condition: FAIR Disposition: HOME/ ROUTINE Instructions: Famotidine (By mouth), Prednisone (By mouth), Thrombocytopenic Purpura (GEN), Acute Headache (DC), Acute Hematuria (DC) Additional Instructions: Advised patient to follow up at [facility] located in the [facility], to set up appointment and establish care. The patient will receive her referral to Dr. Boswell's clinic there as well. Patient is to follow up in the clinic within 7-10 days of discharge. She will have a repeat CBC and if her platelets remain normal we will continue the prednisone taper started upon discharge today. Patient advised to return to emergency department for any new or worsening symptoms. Discharge Medications: 1. Prednisone 90mg PO Daily, #7 2. Pepcid 20mg PO BID Daily ,#[address] Boswell's phone conversation, patient is to take one prednisone tab daily for a total of seven days and return to clinic within that time to have platelet count re-evaluated. If platelets remain stable we can continue the taper to 80 mg PO daily, 70mg... 60mg ... 50mg... etc. Referrals: Clinic,Med Surg [Non-Staff] -
== END 2017-08-18 15:40 | disposition home or self-care (01) | DRG 813 ==
LOC: C.ER 10:19 → C.9E 12:24 → C.5S 16:38
PROVIDERS: ADMIT Family Medicine; ATTEND Family Medicine
DX: D69.6 Thrombocytopenia, unspecified (principal); I10 Essential (primary) hypertension; R31.9 Hematuria, unspecified